=== PATIENT | male | born 1975 | race Caucasian/White ===

== ENCOUNTER → 2017-12-06 | Outpatient (CLI) | payer BC ==
--- NOTE | 2017-12-06 12:26 | US ---
EXAMINATION TYPE: US groin LT DATE OF EXAM: 12/06/2017 COMPARISON: NONE CLINICAL HISTORY: K40.90 Unilateral inguinal hernia. lt groin pain Patient states he bent over and felt a pain in the left groin. Left groin scanned over area of patient's pain with and without valsalva, no ultrasound evidence for hernia. No other abnormality noted. IMPRESSION: No significant abnormality.
== END | disposition home or self-care (01) ==
LOC: RADUSWWP 11:29
PROVIDERS: ATTEND Family Medicine
DX: K40.90 Unilateral inguinal hernia, without obstruction or gangrene, not specified as recurrent (principal)

== ENCOUNTER → 2019-03-02 | Outpatient (CLI) | payer BC ==
[~2019-03-02] MED LIST: ATROPINE SULFATE 0.1 MG/ML 10ML SYRINGE ONE; DOBUTamine DRIP for NUC MED 500 MG in DEXTROSE/WATER 1 250ML.BAG IV ONE
--- NOTE | 2019-03-02 12:35 | ECHOS ---
STRESS ECHOCARDIOGRAM INDICATIONS: Dyspnea BASELINE HEART RATE: 55 BASELINE BLOOD PRESSURE: 138/65 MAXIMUM HEART RATE: 127 MAXIMUM BLOOD PRESSURE: 212/72 85% MPHR: 150 100% MPHR: 176 MAXIMUM STAGE REACHED: 5 TOTAL EXERCISE TIME: 12:45 CLINICAL INFORMATION: Baseline EKG revealed normal sinus rhythm with poor R-wave progression over precordial leads. With dobutamine administration, heart rate changed from 55-127 beats per minute. He also received a mg of atropine. However, the heart rate did not go more than 127 beats per minute making this an inconclusive stress test. Because of resting EKG changes, this is considered an inconclusive stress test. The patient did not have a good chronotropic response with dobutamine administration. Baseline echo images revealed normal wall motion and wall thickening of all segments. There was some atypical septal motion noted. At a peak heart rate of 127 beats per minute which is suboptimal heart rate response with dobutamine infusion, there was evidence of decent improvement in contractility of all segments suggesting that there is no ischemia at a heart rate of 127 beats per minute but this is considered as they inconclusive stress test because of inadequate chronotropic response. FINAL IMPRESSION: 1. By EKG criteria, this is an inconclusive dobutamine stress test because of resting EKG changes and inadequate chronotropic response. 2. Inconclusive dobutamine stress echo because of inadequate chronotropic response but at a heart rate of 127 beats per minute, there was no ischemia. 3. If ischemia is suspected, this patient will benefit from a Lexiscan stress test. MMODL / IJN: [id number] /
== END | disposition home or self-care (01) ==
LOC: RADNMMAIN 09:03
PROVIDERS: ATTEND Family Medicine
DX: R93.1 Abnormal findings on diagnostic imaging of heart and coronary circulation (principal)
CPT/HCPCS: 93351; J1250

== ENCOUNTER 2020-02-20 18:33 | Observation (INO) | payer BC ==
[2020-02-20] MEDS ORDERED: ZIPRASIDONE 20 MG VIAL IM STA (18:53)
[2020-02-20] MEDS ORDERED: LORazepam 2 MG/ML INJ IM STA (18:55)
--- NOTE | 2020-02-20 18:59 | ED ---
General Adult HPI - General Chief complaint: Chest Pain Stated complaint: Chest pain Time Seen by Provider: 02/20/20 18:49 Source: patient Mode of arrival: ambulatory Limitations: no limitations - History of Present Illness Initial comments: Patient presents the ED complaining of having epigastric/lower chest pain radiating to his left arm for the past couple of days. Patient admits to feeling somewhat dyspneic at times as well. Patient also admits to feeling dizzy at times. Patient states that he has had cardiac bypass surgery in the past. Patient states that his pain is currently mild. Patient denies trauma or injury, fever or chills, headache, focal neuro deficit, neck/jaw/back pain, pleuritic pain, cough or cold symptoms, palpitations, diaphoresis, nausea or vomiting, lower abdominal pain, leg or calf swelling or pain, or any other sy mptoms or complaints. - Related Data Home Medications Medication Instructions Recorded Confirmed Atorvastatin [Lipitor] 40 mg PO DAILY 10/13/14 01/31/15 Isosorbide Mononitrate [Isosorbide 30 mg PO QAM 10/13/14 01/31/15 Mononitrate ER] Lisinopril 40 mg PO QAM 10/13/14 01/31/15 Multivitamin [Men's Multi-Vitamin] 1 tab PO DAILY 10/13/14 01/31/15 Carvedilol [Coreg] 12.5 mg PO BID 01/31/15 01/31/15 Furosemide [Lasix] 20 mg PO DAILY 01/31/15 01/31/15 HYDROcodone/APAP 7.5-325MG [[place] 1 each PO Q6HR PRN 01/31/15 02/07/15 7.5-325] Ranolazine [Ranexa] 500 mg PO BID 01/31/15 01/31/15 Varenicline [Chantix] 1 mg PO BID 01/31/15 01/31/15 Previous Rx's Medication Instructions Recorded Aspirin 81 mg PO DAILY #120 chew 10/18/14 Clopidogrel [Plavix] 75 mg PO DAILY #90 tab 10/18/14 Nitroglycerin Sl Tabs [Nitrostat] 0.4 mg SUBLINGUAL Q5M PRN #6 tab 10/18/14 HYDROcodone/APAP 7.5-325MG [[place] 1 - 2 each PO Q6HR PRN #90 tab 02/07/15 7.5] Allergies Allergy/AdvReac Type Severity Reaction Status Date / Time No Known Allergies Allergy Verified 02/20/20 18:42 Review of Systems ROS Statement: Those systems with pertinent positive or pertinent negative responses have been documented in the HPI. ROS Other: All systems not noted in ROS Statement are negative. Past Medical History Past Medical History: Coronary Artery Disease (CAD), Chest Pain / Angina, COPD, Hyperlipidemia, Hypertension, Myocardial Infarction (ME), Pneumonia, Sleep Apnea/CPAP/BIPAP, Vascular Disorder Additional Past Medical History / Comment(s): PARICARDITIS IN AUGUST AND OCTOBER 2011, FATTY LIVER,C-PAP Last Myocardial Infarction Date:: 2008,2010,-2014 History of Any Multi-Drug Resistant Organisms: None Reported Past Surgical History: Coronary Bypass/CABG, Heart Catheterization Additional Past Surgical History / Comment(s): INFANT DEEPIKA INGUINAL HERNIA REP AIR, 2010 TRIPLE BYPASS Past Anesthesia/Blood Transfusion Reactions: Motion Sickness Past Psychological History: No Psychological Hx Reported Smoking Status: Current some day smoker Past Alcohol Use History: Rare Past Drug Use History: None Reported - Past Family History Father Family Medical History: Asthma, COPD, Myocardial Infarction (ME) Mother Family Medical History: Asthma, Cancer, COPD, Hyperlipidemia, Hypertension General Exam Limitations: no limitations General appearance: alert, in no apparent distress Head exam: Present: atraumatic, normocephalic Eye exam: Present: normal appearance, EOMI ENT exam: Present: mucous membranes moist Respiratory exam: Present: normal lung sounds bilaterally. Absent: respiratory distress, wheezes, rales, rhonchi, chest wall tenderness Cardiovascular Exam: Present: regular rate, normal rhythm, normal heart sounds, other (Normal radial pulses bilaterally) GI/Abdominal exam: Present: soft, other (Obese abdomen). Absent: tenderness, guarding Extremities exam: Present: other (Negative Homans sign bilaterally). Absent: tenderness, pedal edema, calf tenderness Neurological exam: Present: alert, oriented X3. Absent: motor sensory deficit Psychiatric exam: Present: normal affect, normal mood Skin exam: Present: warm, dry, intact, normal color Course Vital Signs 02/20/20 02/20/20 18:39 19:30 Temperature 98.0 F Pulse Rate 76 Respiratory 18 Rate Blood Pressure 188/100 144/99 O2 Sat by Pulse 94 L Oximetry - Reevaluation(s) Reevaluation #1: 02/20/20 20:03 Case, H&P, test results and ED management were discussed with Dr. Lang. He accepts hospital admission. He has no further recommendations at this time. 02/20/20 20:07 Patient is aware of his test results, and he agrees with hospital admission at this time. Patient denies development of any new symptoms while in the ED. Patient remains alert and breathing comfortably. EKG Findings - EKG Comments: EKG Findings:: Normal sinus rhythm, ventricular rate of 72 bpm, no ectopy, normal LA and QRS intervals, normal QT interval, normal axis, no ST or T-wave abnormality Medical Decision Making - Medical Decision Making Patient has a heart score 3, but given his significant cardiac history and presenting symptoms, will admit the patient to the hospital for further evaluation of his chest pain and cardiac rule out. Dr. Lang has accepted hospital admission. - Lab Data Result diagrams: 02/20/20 19:10 02/20/20 19:10 Lab Results 02/20/20 02/20/20 02/20/20 Range/Units 19:10 19:10 19:10 WBC 11.3 H (3.8-10.6) k/uL RBC 5.74 (4.30-5.90) m/uL Hgb 18.0 H (13.0-17.5) gm/dL Hct 53.6 H (39.0-53.0) % MCV 93.3 (80.0-100.0) fL MCH 31.4 (25.0-35.0) pg MCHC 33.7 (31.0-37.0) g/dL RDW 13.7 (11.5-15.5) % Plt Count 174 (150-450) k/uL Neutrophils % 62 % Lymphocytes % 24 % Monocytes % 9 % Eosinophils % 3 % Basophils % 1 % Neutrophils # 7.0 (1.3-7.7) k/uL Lymphocytes # 2.7 (1.0-4.8) k/uL Monocytes # 1.0 (0-1.0) k/uL Eosinophils # 0.3 (0-0.7) k/uL Basophils # 0.1 (0-0.2) k/uL PT 9.7 (9.0-12.0) sec INR 0.9 (<1.2) APTT 24.1 (22.0-30.0) sec Sodium 137 (137-145) mmol/L Potassium 4.6 (3.5-5.1) mmol/L Chloride 104 (98-107) mmol/L Carbon Dioxide 23 (22-30) mmol/L Anion Gap 10 mmol/L BUN 17 (9-20) mg/dL Creatinine 1.00 (0.66-1.25) mg/dL Est GFR (CKD-EPI)AfAm >90 (>60 ml/min/1.73 sqM) Est GFR (CKD-EPI)NonAf >90 (>60 ml/min/1.73 sqM) Glucose 91 (74-99) mg/dL Calcium 9.4 (8.4-10.2) mg/dL Magnesium 1.8 (1.6-2.3) mg/dL Total Bilirubin 0.8 (0.2-1.3) mg/dL AST 66 H (17-59) U/L ALT 110 H (4-49) U/L Alkaline Phosphatase 95 (38-126) U/L Troponin I (0.000-0.034) ng/mL Total Protein 7.3 (6.3-8.2) g/dL Albumin 4.5 (3.5-5.0) g/dL Lipase 178 (23-300) U/L /18/20 Range/Units 19:10 WBC (3.8-10.6) k/uL RBC (4.30-5.90) m/uL Hgb (13.0-17.5) gm/dL Hct (39.0-53.0) % MCV (80.0-100.0) fL MCH (25.0-35.0) pg MCHC (31.0-37.0) g/dL RDW (11.5-15.5) % Plt Count (150-450) k/uL Neutrophils % % Lymphocytes % % Monocytes % % Eosinophils % % Basophils % % Neutrophils # (1.3-7.7) k/uL Lymphocytes # (1.0-4.8) k/uL Monocytes # (0-1.0) k/uL Eosinophils # (0-0.7) k/uL Basophils # (0-0.2) k/uL PT (9.0-12.0) sec INR (<1.2) APTT (22.0-30.0) sec Sodium (137-145) mmol/L Potassium (3.5-5.1) mmol/L Chloride (98-107) mmol/L Carbon Dioxide (22-30) mmol/L Anion Gap mmol/L BUN (9-20) mg/dL Creatinine (0.66-1.25) mg/dL Est GFR (CKD-EPI)AfAm (>60 ml/min/1.73 sqM) Est GFR (CKD-EPI)NonAf (>60 ml/min/1.73 sqM) Glucose (74-99) mg/dL Calcium (8.4-10.2) mg/dL Magnesium (1.6-2.3) mg/dL Total Bilirubin (0.2-1.3) mg/dL AST (17-59) U/L ALT (4-49) U/L Alkaline Phosphatase (38-126) U/L Troponin I 0.026 (0.000-0.034) ng/mL Total Protein (6.3-8.2) g/dL Albumin (3.5-5.0) g/dL Lipase (23-300) U/L - Radiology Data Radiology results: image reviewed (Chest x-ray is negative) Disposition Clinical Impression: Chest pain Disposition: ADMITTED IP TO THIS [facility] Condition: Stable Is patient prescribed a controlled substance at d/c from ED?: No Referrals: Roman Brown MD [Primary Care Provider] - 1-2 days Time of Disposition: 20:03
[2020-02-20] MEDS ORDERED: ASPIRIN 325 MG TAB PO STA (19:10)
[2020-02-20] MEDS ORDERED: NITROGLYCERIN SL TABS 0.4 MG TAB SUBLINGUAL STA (19:10)
[2020-02-20 19:22] LABS: Basophils # (A) 0.1 k/uL (0-0.2); Basophils % (A) 1 %; Eosinophils # (A) 0.3 k/uL (0-0.7); Eosinophils % (A) 3 %; HCT 53.6 % (39.0-53.0); Lymphocytes # (A) 2.7 k/uL (1.0-4.8); Lymphocytes % (A) 24 %; MCH 31.4 pg (25.0-35.0); MCHC 33.7 g/dL (31.0-37.0); MCV 93.3 fL (80.0-100.0); Mean Platelet Volume 7.5; Monocytes % (A) 9 %; Neutrophils % (A) 62 %; Platelet Count 174 k/uL (150-450); RBC 5.74 m/uL (4.30-5.90); RDW 13.7 % (11.5-15.5); WBC 11.3 k/uL (3.8-10.6)
[2020-02-20 19:34] LABS: ALT 110 U/L (4-49); AST 66 U/L (17-59); African American GFR (CKD) >90 (>60 ml/min/1.73 sqM); Albumin 4.5 g/dL (3.5-5.0); Alkaline Phosphatase 95 U/L (38-126); Anion Gap 10 mmol/L; Blood Urea Nitrogen 17 mg/dL (9-20); Calcium 9.4 mg/dL (8.4-10.2); Carbon Dioxide 23 mmol/L (22-30); Chloride 104 mmol/L (98-107); Glucose 91 mg/dL (74-99); Magnesium 1.8 mg/dL (1.6-2.3); Non-African American GFR(CKD) >90 (>60 ml/min/1.73 sqM); Potassium 4.6 mmol/L (3.5-5.1); Sodium 137 mmol/L (137-145); Total Bilirubin 0.8 mg/dL (0.2-1.3); Total Protein 7.3 g/dL (6.3-8.2)
--- NOTE | 2020-02-20 19:57 | XR ---
EXAMINATION TYPE: XR chest 2V DATE OF EXAM: 02/20/2020 COMPARISON: Chest radiograph 10/13/2014 HISTORY: Chest pain. Epigastric pain and left quadrant pain. TECHNIQUE: Frontal and lateral views of the chest are obtained. FINDINGS: Sternotomy wires. Similar prominent lung markings over the right lung base versus 2015 com parison. There is no focal air space opacity, pleural effusion, or pneumothorax seen. The cardiac si lhouette is within normal limits for size. The osseous structures are intact. IMPRESSION: No acute pulmonary process.
[2020-02-20 19:59] LABS: INR 0.9 (<1.2); Partial Thromboplastin Time 24.1 sec (22.0-30.0); Prothrombin Time 9.7 sec (9.0-12.0)
[2020-02-20] MEDS ORDERED: carvediloL 12.5 MG TAB PO SCH (21:00)
[2020-02-20] MEDS ORDERED: HEPARIN SODIUM,PORCINE 5,000 UNIT/ML 1 ML VIAL IV PRN (21:46)
[2020-02-20] MEDS ORDERED: HEPARIN SODIUM,PORCINE 5,000 UNIT/ML 1 ML VIAL IV ONE (21:46)
[2020-02-20] MEDS ORDERED: NITROGLYCERIN OINT 1 INCH/GM PACKET TOPICAL STA (21:47)
[2020-02-20] MEDS ORDERED: ACETAMINOPHEN TAB 325 MG TAB PO PRN (21:48)
[2020-02-20] MEDS ORDERED: HEPARIN SOD,PORK IN 0.45% NACL 25,000 UNIT in 0.45% NACL 1 250ML.BAG IV SCH (22:00)
--- NOTE | 2020-02-20 22:07 | P.HPIM ---
History of Present Illness H&P Date: 02/20/20 Patient is a 45-year-old male with a PMH of coronary artery disease status post CABG, hypertension, hyperlipidemia, obstructive sleep apnea on CPAP who presented to the ED with complaints of left-sided chest pain. The patient reports that he has been having this pain initially intermittently for the past 2 days, which then became constant earlier today. The pain is on the left side of his chest, squeezing-like, 6 out of 10, constant, with radiation to his left arm. He reports that the pain is different from his previous episodes of MIs. The pain is exertional and also occurring at rest, with no alleviating or exacerbating features, and is nonpleuritic. Denied recent travel, lower extrem ity swelling, or lower extremity pain. There is some associated shortness of breath and dizziness though the patient denied palpitations, nausea, vomiting, or loss of consciousness. Denied cough, fever, chills, abdominal pain, or diarrhea. In the emergency room, troponin level was 0.026, EKG revealed a normal sinus rhythm at 72 bpm with no acute ST/T-wave changes noted as reviewed by me. Chest x-ray revealed no acute pulmonary process. WBC count was 11.3 with hemoglobin 18.0. Review of Systems Pertinent positives and negatives as discussed in HPI, a complete review of systems was performed and all other systems are negative. Past Medical History Past Medical History: Coronary Artery Disease (CAD), Chest Pain / Angina, COPD, Hyperlipidemia, Hypertension, Myocardial Infarction ([place]), Pneumonia, Sleep Apnea/CPAP/BIPAP, Vascular Disorder Additional Past Medical History / Comment(s): PARICARDITIS IN AUGUST AND OCTOBER 2011, FATTY LIVER,C-PAP Last Myocardial Infarction Date:: ,-2014 History of Any Multi-Drug Resistant Organisms: None Reported Past Surgical History: Coronary Bypass/CABG, Heart Catheterization Additional Past Surgical History / Comment(s): DEEPIKA INGUINAL HERNIA REPAIR, 2010 TRIPLE BYPASS Past Anesthesia/Blood Transfusion Reactions: Motion Sickness Past Psychological History: No Psychological Hx Reported Smoking Status: Current some day smoker Past Alcohol Use History: Rare Additional Past Alcohol Use History / Comment(s): STARTED SMOKING AT AGE 11 SMOKES 2 PPD. PT IS A [employer] REP BY [employer] Past Drug Use History: None Reported - Past Family History Father Family Medical History: Asthma, COPD, Myocardial Infarction (HI) Mother Family Medical History: Asthma, Cancer, COPD, Hyperlipidemia, Hypertension Medications and Allergies Home Medications Medication Instructions Recorded Confirmed Type Atorvastatin [Lipitor] 40 mg PO HS 10/13/14 02/20/20 History Aspirin 81 mg PO HS 02/20/20 02/20/20 History Hydrochlorothiazide 25 mg PO HS 02/20/20 02/20/20 History Losartan Potassium 100 mg PO HS 02/20/20 02/20/20 History Metoprolol Succinate (ER) [Toprol 50 mg PO HS 02/20/20 02/20/20 History Xl] Omeprazole [PriLOSEC] 40 mg PO HS 02/20/20 02/20/20 History Triamcinolone 0.1% Cream [Kenalog 1 applicatio TOPICAL BID PRN 02/20/20 02/20/20 History 0.1% Cream] Allergies Allergy/AdvReac Type Severity Reaction Status Date / Time No Known Allergies Allergy Verified 02/20/20 21:32 Physical Exam Vitals: Vital Signs Temp Pulse Pulse Resp BP BP Pulse Ox 02/20/20 21:22 98.1 F 61 18 141/84 93 L 02/20/20 20:33 98.4 F 68 18 138/96 95 02/20/20 20:00 131/92 02/20/20 19:30 144/99 02/20/20 18:39 98.0 F 76 18 188/100 94 L Intake and Output 02/20/20 02/20/20 02/20/20 06:59 14:59 22:59 Other: Weight 176.901 kg General: non toxic, no distress, appears at stated age, morbidly obese Derm: no unusual rashes/lesions no unusual ecchymoses, warm, dry Head: atraumatic, normocephalic, symmetric Eyes: EOMI, no lid lag, anicteric sclera, pupils equal round reactive to light ENT: Nose and ears atraumatic, no thrush, no pharyngeal erythema Neck: No thyromegaly, no cervical lymphadenopathy, trachea midline, supple Mouth: no lip lesion, mucus membranes moist Cardiovascular: S1S2 reg, no murmur, positive posterior tibial pulse bilateral, no edema, capillary refill less than 2 seconds Lungs: CTA bilateral, no rhonchi, no rales , no accessory muscle use Abdominal: soft, nontender to palpation, no guarding, no appreciable organomegaly, normal bowel sounds Ext: no gross muscle atrophy, muscle strength 5 out of 5 in all 4 extremities grossly, no contractures, Neuro: CN II-XI grossly intact, light touch intact all 4 extremities, finger to nose within normal limits, Psych: Alert, oriented, appropriate affect Results CBC & Chem 7: 02/20/20 19:10 02/20/20 19:10 Labs: Abnormal Lab Results - Last 24 Hours (Table) 02/20/20 02/20/20 Range/Units 19:10 19:10 WBC 11.3 H (3.8-10.6) k/uL Hgb 18.0 H (13.0-17.5) gm/dL Hct 53.6 H (39.0-53.0) % AST 66 H (17-59) U/L ALT 110 H (4-49) U/L Thrombosis Risk Factor Assmnt - Choose All That Apply Each Factor Represents 1 point: Abnormal pulmonary function (COPD) Thrombosis Risk Factor Assessment Total Risk Factor Score: 1 Thrombosis Risk Factor Assessment Level: Low Risk Assessment and Plan Plan: Unstable angina -Heparin infusion -Aspirin, Lipitor, statin -Cardiology consult -Cardiac monitoring. -Nitropaste -Trend troponin Polycythemia -Likely secondary to obstructive sleep apnea -Monitor for now Leukocytosis -No signs of acute infection at this time -Likely secondary to acute distress Abnormal LFTs -Denying abdominal complaints at this time -Monitor CMP Chronic conditions: Hypertension, hyperlipidemia, obstructive sleep apnea -Continue with home meds -CPAP while sleeping DVT prophylaxis -Heparin infusion The patient is admitted with an anticipated less than 2 midnight stay for evaluation of chest pain CODE STATUS: Full Code Discussed with: Patient Anticipated discharge date: 1-[address]: Home A total of 35 minutes was spent on the care of this complex patient more than 50% of the time was spent in counseling and care coordination.
[2020-02-20] MEDS ORDERED: IPRATROPIUM-ALBUTEROL 3 ML NEB INHALATION PRN (22:50)
[2020-02-21] MEDS: NITROGLYCERIN OINT 1 INCH/GM PACKET TOPICAL SCH ×2 (01:38→06:44)
[2020-02-21 03:57] LABS: Basophils # (A) 0.1 k/uL (0-0.2); Basophils % (A) 1 %; Eosinophils # (A) 0.3 k/uL (0-0.7); Eosinophils % (A) 4 %; HCT 52.1 % (39.0-53.0); HGB 16.6 gm/dL (13.0-17.5); Lymphocytes # (A) 3.2 k/uL (1.0-4.8); Lymphocytes % (A) 33 %; MCH 29.6 pg (25.0-35.0); MCHC 31.8 g/dL (31.0-37.0); MCV 93.2 fL (80.0-100.0); Mean Platelet Volume 7.2; Monocytes # (A) 0.9 k/uL (0-1.0); Monocytes % (A) 9 %; Neutrophils # (A) 5.2 k/uL (1.3-7.7); Neutrophils % (A) 52 %; Platelet Count 165 k/uL (150-450); RBC 5.59 m/uL (4.30-5.90); RDW 13.7 % (11.5-15.5)
[2020-02-21 04:10] LABS: Albumin 3.7 g/dL (3.5-5.0); Potassium 3.6 mmol/L (3.5-5.1); Total Bilirubin 0.7 mg/dL (0.2-1.3)
[2020-02-21 07:51] VITALS: BP 150/89; RESP 16; TEMP 97.8
[2020-02-21] MEDS: IPRATROPIUM-ALBUTEROL 3 ML NEB INHALATION SCH ×2 (07:52→11:26)
[2020-02-21] MEDS ORDERED: PANTOPRAZOLE 40 MG TABLET PO SCH (08:15)
[2020-02-21] MEDS ORDERED: ATORVASTATIN 40 MG TAB PO SCH (09:00)
[2020-02-21] MEDS ORDERED: FUROSEMIDE 20 MG TAB PO SCH (09:00)
[2020-02-21] MEDS ORDERED: lisinopriL 20 MG TAB PO SCH (09:00)
[2020-02-21] MEDS ORDERED: CLOPIDOGREL 75 MG TAB PO SCH (09:00)
--- NOTE | 2020-02-21 10:29 | P.CRDCN ---
History of Present Illness History of present illness: HISTORY OF PRESENTING ILLNESS This is a pleasant 45-year-old male past medical history significant for area artery disease, hypertension, dyslipidemia and morbid obesity. He follows in the office with Dr. Keane. We have been asked to see in consultation for chest pain. He states for the previous couple of months he has been experiencing an achy sensation in the upper abdominal epigastric region. Sometimes it is sharp sometimes it is tight and squeezing. It is not associated with activity or exertion. It is not precipitated by oral intake. There is no specific aggravating factors. When it comes it is intense in nature. Sometimes it radiates up into the left precordial region, left shoulder and down the left arm. It is associated with very mild shortness of breath and mild dizziness. For the last 3 days it has been rather constant in nature. It is mildly aggr avated by deep palpation in the epigastric region. DIAGNOSTICS EKG reveals sinus mechanism, left atrial enlargement, old inferior infarct and poor R-wave for depression. Telemetry tracings indicate sinus bradycardia. He was given coronary left neck which is not his normal beta karthikeyan. Chest xray negative for an acute cardiopulmonary process. Laboratory reviewed, WBC on admission 11.3 repeat this morning 10, hemoglobin 16.6, platelets 165, sodium 135, potassium 3.6, creatinine 1.14, magnesium 1.8, cardiac enzymes negative 3. Current cardiac medications include aspirin 81 mg daily, atorvastatin 40 mg daily, hydrochlorothiazide 25 mg daily, losartan 100 mg daily and Toprol 50 mg daily. In 2014 he underwent cardiac catheterization revealing severe triple vessel coronary artery disease with 100% occlusion of the midcircumflex, which percent occlusion of the proximal RCA, 90% occlusion of the proximal LAD, patent TODD to LAD, SVG to RCA and SVG to circumflex REVIEW OF SYSTEMS At the time of my exam: CONSTITUTIONAL: Denies fever or chills. CARDIOVASCULAR: Complains of constant chest pain. Denies shortness of breath, orthopnea, PND or palpitations. RESPIRATORY: Denies cough. GASTROINTESTINAL: Denies abdominal pain, diarrhea, constipation, nausea or vomiting. MUSCULOSKELETAL: Denies myalgias. NEUROLOGIC: Denies numbness, tingling or weakness. ENDOCRINE: Denies fatigue, weight change, polydipsia or polyurina. GENITOURINARY: Denies burning, hematuria or urgency with micturation. HEMATOLOGIC: Denies history of anemia or bleeding. PHYSICAL EXAMINATION Blood pressure 150/89 heart rate 66 afebrile and maintaining oxygen saturation on room air. CONSTITUTIONAL: No apparent distress. Morbidly obese. HEENT: Head is normocephalic. Pupils are equal, round. Sclerae anicteric. Mucous membranes of the mouth are moist. No JVD. No carotid bruit. CHEST EXAMINATION: Lungs are clear to auscultation. No chest wall tenderness is noted on palpation or with deep breathing. HEART EXAMINATION: Regular rate and rhythm. S1, S2 heard. No murmurs, gallops or rub. ABDOMEN: Soft, nontender. Positive bowel sounds. EXTREMITIES: 2+ peripheral pulses, no lower extremity edema and no calf tend erness. NEUROLOGIC EXAMINATION: Patient is awake, alert and oriented x3. ASSESSMENT Chest pain, atypical. An acute coronary event has been ruled out. Coronary artery disease status post bypass grafting, patent three-vessel graft 2014 Hypertension Dyslipidemia Obstructive sleep apnea Morbid obesity, BMI 52 PLAN An acute coronary event has been ruled out. Symptoms are atypical for angina. May be related to underlying GI inflammation or peptic ulcer disease. Initiate Protonix 40 mg twice a day and assess for relief of ongoing constant discomfort. Increase activity and ambulation. Can be discharged from a cardiac perspective, follow-up with his primary japanese tutor for outpatient stress testing. Continue Toprol 50 mg at bedtime. Ongoing compliance with CPAP. Thank you kindly for this consultation. Nurse Practitioner note has been reviewed, I agree with a documented findings and plan of care. Patient was seen and examined. Past Medical History Past Medical History: Coronary Artery Disease (CAD), Chest Pain / Angina, COPD, Hyperlipidemia, Hypertension, Myocardial Infarction (PR), Pneumonia, Sleep Apnea/CPAP/BIPAP, Vascular Disorder Additional Past Medical History / Comment(s): PARICARDITIS IN AUGUST AND OCTOBER 2011, FATTY LIVER,C-PAP Last Myocardial Infarction Date:: 2008,2010,-2014 History of Any Multi-Drug Resistant Organisms: None Reported Past Surgical History: Coronary Bypass/CABG, Heart Catheterization Additional Past Surgical History / Comment(s): INFANT DEEPIKA INGUINAL HERNIA REPAIR, 2010 TRIPLE BYPASS Past Anesthesia/Blood Transfusion Reactions: Motion Sickness Past Psychological History: No Psychological Hx Reported Smoking Status: Current some day smoker Past Alcohol Use History: Rare Additional Past Alcohol Use History / Comment(s): STARTED SMOKING AT AGE 11 SMOK ES 2 PPD. 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[employer] Past Drug Use History: None Reported - Past Family History Father Family Medical History: Asthma, COPD, Myocardial Infarction (PR) Mother Family Medical History: Asthma, Cancer, COPD, Hyperlipidemia, Hypertension Medications and Allergies Home Medications Medication Instructions Recorded Confirmed Type Atorvastatin [Lipitor] 40 mg PO HS 10/13/14 02/20/20 History Aspirin 81 mg PO HS 02/20/20 02/20/20 History Hydrochlorothiazide 25 mg PO HS 02/20/20 02/20/20 History Losartan Potassium 100 mg PO HS 02/20/20 02/20/20 History Metoprolol Succinate (ER) [Toprol 50 mg PO HS 02/20/20 02/20/20 History Xl] Omeprazole [PriLOSEC] 40 mg PO HS 02/20/20 02/20/20 History Triamcinolone 0.1% Cream [Kenalog 1 applicatio TOPICAL BID PRN 02/20/20 02/20/20 History 0.1% Cream] Allergies Allergy/AdvReac Type Severity Reaction Status Date / Time No Known Allergies Allergy Verified 02/20/20 21:32 Physical Exam Vitals: Vital Signs Temp Pulse Pulse Resp BP BP BP 02/21/20 07:53 63 02/21/20 07:50 97.8 F 61 16 150/89 02/21/20 03:00 97 F L 64 20 154/70 02/20/20 21:22 98.1 F 61 18 141/84 02/20/20 21:00 98.1 F 61 18 141/84 02/20/20 20:33 98.4 F 68 18 138/96 02/20/20 20:00 131/92 02/20/20 19:30 144/99 02/20/20 18:39 98.0 F 76 18 188/100 Pulse Ox 02/21/20 07:53 94 L 02/21/20 07:50 96 02/21/20 03:00 94 L 02/20/20 21:22 93 L 02/20/20 21:00 93 L 02/20/20 20:33 95 02/20/20 20:00 02/20/20 19:30 02/20/20 18:39 94 L Intake and Output 02/20/20 02/21/20 02/21/20 22:59 06:59 14:59 Intake Total 52.186 Balance 52.186 Intake: Intake, IV Titration 52.186 Amount Heparin Sod,Pork in 0.45% 52.186 NaCl 25,000 unit In 0.45 % NaCl 1 250ml.bag @ 5 UNITS/KG/HR 8.845 mls/hr IV .Q24H [facility] Rx#: [id number] Other: Voiding Method Toilet Toilet # Voids 1 1 Weight 176.901 kg Results 02/21/20 03:41 02/21/20 03:41 Cardiac Enzymes 02/20/20 02/20/20 02/20/20 Range/Units 19:10 19:10 22:10 AST 66 H (17-59) U/L Troponin I 0.026 0.028 (0.000-0.034) ng/mL 02/21/20 02/21/20 Range/Units 01:00 03:41 AST 46 (17-59) U/L Troponin I 0.027 (0.000-0.034) ng/mL Coagulation 02/20/20 02/21/20 Range/Units 19:10 03:41 PT 9.7 (9.0-12.0) sec APTT 24.1 25.7 (22.0-30.0) sec CBC 02/20/20 02/21/20 Range/Units 19:10 03:41 WBC 11.3 H 10.0 (3.8-10.6) k/uL RBC 5.74 5.59 (4.30-5.90) m/uL Hgb 18.0 H 16.6 (13.0-17.5) gm/dL Hct 53.6 H 52.1 (39.0-53.0) % Plt Count 174 165 (150-450) k/uL Comprehensive Metabolic Panel 02/20/20 02/21/20 Range/Units 19:10 03:41 Sodium 137 135 L (137-145) mmol/L Potassium 4.6 3.6 (3.5-5.1) mmol/L Chloride 104 101 (98-107) mmol/L Carbon Dioxide 23 27 (22-30) mmol/L BUN 17 18 (9-20) mg/dL Creatinine 1.00 1.14 (0.66-1.25) mg/dL Glucose 91 120 H (74-99) mg/dL Calcium 9.4 9.0 (8.4-10.2) mg/dL AST 66 H 46 (17-59) U/L ALT 110 H 94 H (4-49) U/L Alkaline Phosphatase 95 84 (38-126) U/L Total Protein 7.3 6.0 L (6.3-8.2) g/dL Albumin 4.5 3.7 (3.5-5.0) g/dL Current Medications Generic Name Dose Route Start Last Admin Trade Name Freq PRN Reason Stop Dose Admin Acetaminophen 650 mg 02/20/20 21:48 Tylenol Tab PO Q6HR PRN Fever and/ or Pain Albuterol/Ipratropium 3 ml 02/20/20 22:50 Duoneb 0.5 Mg-3 Mg/3 Ml Soln INHALATION RT-QID PRN Shortness Of Breath Or Wheezing Albuterol/Ipratropium 3 ml 02/21/20 08:00 02/21/20 07:52 Duoneb 0.5 Mg-3 Mg/3 Ml Soln INHALATION 3 ml RT-QID RICHELLE Administration Atorvastatin Calcium 40 mg 02/21/20 09:00 Lipitor PO DAILY [facility] Heparin Sodium (Porcine) 0 unit 02/20/20 21:46 02/21/20 04:15 Heparin IV 4,000 unit PER PROTOCOL PRN Administration Low PTT Protocol Heparin Sodium/Sodium Chloride 250 mls @ 8.845 mls/hr 02/20/20 22:00 02/21/20 04:08 25,000 unit/ Sodium Chloride IV 8 units/kg/hr .Q24H RICHELLE 14.152 mls/hr Titration Protocol 5 UNITS/KG/HR Intake and Output 02/20/20 02/21/20 02/21/20 22:59 06:59 14:59 Intake Total 52.186 Balance 52.186 Intake: Intake, IV Titration 52.186 Amount Heparin Sod,Pork in 0.45% 52.186 NaCl 25,000 unit In 0.45 % NaCl 1 250ml.bag @ 5 UNITS/KG/HR 8.845 mls/hr IV .Q24H [facility] Rx#: [id number] Other: Voiding Method Toilet Toilet # Voids 1 1 Weight 176.901 kg 02/21/20 03:41 02/21/20 03:41
--- NOTE | 2020-02-21 11:15 | P.DS ---
Providers Date of admission: 02/20/20 20:03 Expected date of discharge: 02/21/20 Attending physician: Terry Lang MD Consults: 02/20/20 20:03 Consult Physician Stat Consulting Provider: Rosendo Moraes Reason/Comments: chest pain Do you want consulting provider notified?: Yes Primary care physician: [facility] Course: Patient is a 45-year-old male with a PMH of coronary artery disease status post CABG, hypertension, hyperlipidemia, obstructive sleep apnea on CPAP who presented to the ED with complaints of left-sided chest pain. The patient reports that he has been having this pain initially intermittently for the past 2 days, which then became constant earlier today. The pain is on the left side of his chest, squeezing-like, 6 out of 10, constant, with radiation to his left arm. He reports that the pain is different from his previous episodes of MIs. The pain is exertional and also occurring at rest, with no alleviating or exacerbating features, and is nonpleuritic. Denied recent travel, lower extremity swelling, or lower extremity pain. There is some associated shortness of breath and dizziness though the patient denied palpitations, nausea, vomiting, or loss of consciousness. Denied cough, fever, chills, abdominal pain, or diarrhea. In the emergency room, troponin level was 0.026, EKG revealed a normal sinus rhythm at 72 bpm with no acute ST/T-wave changes noted as reviewed by me. Chest x-ray revealed no acute pulmonary process. WBC count was 11.3 with hemoglobin 18.0. Patient was initially started on heparin drip for concerns of unstable angina. Troponins were 0.026, 0.028, 0.027. Acute coronary syndrome was ruled out. Lipase was within normal limits. Cardiology was consulted and recommended outpatient follow-up. Patient was seen and examined. No acute events overnight. Patient reported burning like pain in his upper epigastric area that brought him to the ED. Patient currently denies any chest pain. He denies any shortness of breath or palpitations. No nausea or vomiting. No fever or chills. 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 He denies any dizziness. General: [non toxic], [no distress], [appears at stated age], morbidly obese Derm: [warm], [dry] Head: [atraumatic], [normocephalic], [symmetric] Eyes: [EOMI], [no lid lag], [anicteric sclera] Mouth: [no lip lesion], [mucus membranes moist] Cardiovascular: [S1S2 reg], [no murmur], [positive DP pulse bilateral], Lungs: [Decreased breath sounds bilateral], [no rhonchi, no rales] , [no accessory muscle use] Abdominal: [soft], [ nontender to palpation], [no guarding], [no appreciable organomegaly] Ext: [no gross muscle atrophy], [no edema], [no contractures] Neuro: [no focal neuro deficits] Psych: [Alert], [oriented], [appropriate affect] Chest pain likely related to GERD with history of CAD Elevated LFT Hypertension Dyslipidemia Obstructive sleep apnea Resolved: Polycythemia, leukocytosis Troponins have been trended and acute coronary syndrome has been ruled out. Cardiology has been consulted and recommends outpatient follow-up as his chest pain is noncardiac in nature. Patient will be continued on omeprazole. He is to continue aspirin, Lipitor and metoprolol. He is to follow-up with cardiology in the outpatient setting. He has been advised against using Advil. His elevated LFTs have trended down. This is of unknown significance. Possibly related to fatty liver or Lipitor use. Patient will need to follow-up in the outpatient setting for further workup and management. Most recent blood pressures 150/89. Continue metoprolol, hydrochlorothiazide and losartan. Monitor vitals, adjust medications if necessary. Continue Lipitor. Continue CPAP at nighttime. Patient admitted for chest pain. Acute coronary syndrome ruled out. Cardiology consulted, recommends outpatient follow-up. He has been cleared for discharge. Anticipate DC home today. Patient advised to come back for worsening chest pain, shortness breath, palpitations or dizziness. He was advised dietary modification and elevation of bed at bedtime also avoiding late night eating for better control of his GERD symptoms. Pertinent Studies: Chest x-ray Patient Condition at Discharge: Stable Plan - Discharge Summary New Discharge Prescriptions: New Nitroglycerin Sl Tabs [Nitrostat] 0.4 mg SUBLINGUAL Q5M PRN #25 tab PRN Reason: Chest Pain Pantoprazole [Protonix] 40 mg PO AC-BID #60 tablet. Continue Atorvastatin [Lipitor] 40 mg PO HS Triamcinolone 0.1% Cream [Kenalog 0.1% Cream] 1 applicatio TOPICAL BID PRN PRN Reason: ECZEMA Metoprolol Succinate (ER) [Toprol XL] 50 mg PO HS Losartan Potassium 100 mg PO HS Hydrochlorothiazide 25 mg PO HS Aspirin 81 mg PO HS Discontinued Omeprazole [PriLOSEC] 40 mg PO HS Discharge Medication List Atorvastatin [Lipitor] 40 mg PO HS 10/13/14 [History] Aspirin 81 mg PO HS 02/20/20 [History] Hydrochlorothiazide 25 mg PO HS 02/20/20 [History] Losartan Potassium 100 mg PO HS 02/20/20 [History] Metoprolol Succinate (ER) [Toprol XL] 50 mg PO HS 02/20/20 [History] Triamcinolone 0.1% Cream [Kenalog 0.1% Cream] 1 applicatio TOPICAL BID PRN 02/20/20 [History] Nitroglycerin Sl Tabs [Nitrostat] 0.4 mg SUBLINGUAL Q5M PRN #25 tab 02/21/20 [Rx] Pantoprazole [Protonix] 40 mg PO AC-BID #60 tablet. 02/21/20 [Rx] Follow up Appointment(s)/Referral(s): Roman Brown MD [Primary Care Provider] - 1-2 days Henri Sloan MD [STAFF PHYSICIAN] - 1 Week Activity/Diet/Wound Care/Special Instructions: Diet: Cardiac low salt Follow-up with PCP within 2 days of discharge. Follow-up with cardiology within 1 week of discharge. Take all medications as advised to come back to the ED or call 911 for worsening chest pain, shortness breath, palpitations or dizziness. Discharge Disposition: HOME SELF-CARE
[2020-02-21 11:36] VITALS: PULSE 55
[2020-02-21] MEDS ORDERED: METOPROLOL SUCCINATE (ER) 50 MG TAB.ER.24H PO SCH (21:00)
[2020-02-21] MEDS ORDERED: LOSARTAN 50 MG TAB PO SCH (21:00)
[2020-02-21] MEDS ORDERED: ASPIRIN 81 MG PO SCH (21:00)
[2020-02-21] MEDS ORDERED: hydroCHLOROthiazide 25 MG TAB PO SCH (21:00)
== END 2020-02-21 13:13 | disposition home or self-care (01) ==
LOC: EC 18:33 → 3NCARDOBS 20:03
PROVIDERS: ADMIT Internal Medicine; ATTEND Internal Medicine
DX: R07.89 Other chest pain (principal); R42 Dizziness and giddiness; J44.9 Chronic obstructive pulmonary disease, unspecified; R79.89 Other specified abnormal findings of blood chemistry; I25.10 Atherosclerotic heart disease of native coronary artery without angina pectoris; I10 Essential (primary) hypertension; E78.5 Hyperlipidemia, unspecified; G47.33 Obstructive sleep apnea (adult) (pediatric); F17.210 Nicotine dependence, cigarettes, uncomplicated; D75.1 Secondary polycythemia; D72.829 Elevated white blood cell count, unspecified; I99.9 Unspecified disorder of circulatory system; Z20.828 Contact with and (suspected) exposure to other viral communicable diseases; K76.0 Fatty (change of) liver, not elsewhere classified; Z99.89 Dependence on other enabling machines and devices; E66.01 Morbid (severe) obesity due to excess calories; Z68.43 Body mass index [BMI] 50.0-59.9, adult; I25.2 Old myocardial infarction; Z79.82 Long term (current) use of aspirin; Z79.899 Other long term (current) drug therapy; Z95.1 Presence of aortocoronary bypass graft; Z87.01 Personal history of pneumonia (recurrent); Z82.5 Family history of asthma and other chronic lower respiratory diseases; Z82.49 Family history of ischemic heart disease and other diseases of the circulatory system; Z83.49 Family history of other endocrine, nutritional and metabolic diseases; Z80.9 Family history of malignant neoplasm, unspecified
CPT/HCPCS: 93005 ×2; 96365; 96366 ×2; 96376 ×2; 99285; 36415; 94640 ×2; 94760; 80053 ×2; 83690; 83735; 84484 ×2; 85025 ×2; 85610; 85730 ×2; 71046; G0378 ×2; U0003; J1644 ×3

== ENCOUNTER → 2020-07-06 | Outpatient (CLI) | payer BC ==
--- NOTE | 2020-07-06 16:19 | P.HPBAR ---
Bariatric H&P - History & Physicial H&P Date: 07/06/20 History & Physicial: Visit/CC: initial visit Patient initial contact: Initial weight: Initial weight in pounds: Height: 5 ft 10 in Initial BMI: Last weight: Current weight: 173.726 kg Current weight in pounds: Current BMI: [place] body weight (based on NIH guidelines): Excess body weight loss: The patient is a 45 year-old M who presents for Bariatric Assessment. He is looking into the sleeve. EGD into stomach. He has sleep apnea. Still has gallbladder. Mother has gallbladder. Stomach cancer does not exist. All family members with obesity. He takes omeprazole. Has has multiple heart attacks. He smokes. He is out of breath. He has sleep apnea. He reports diarrhea with fatty foods. He is difficult to awake. EGD Labs Past Medical History Past Medical History: Coronary Artery Disease (CAD), Chest Pain / Angina, COPD, Hyperlipidemia, Hypertension, Myocardial Infarction (ID), Pneumonia, Sleep Apnea/CPAP/BIPAP, Vascular Disorder Additional Past Medical History / Comment(s): PARICARDITIS IN AUGUST AND OCTOBER 2011, FATTY LIVER,C-PAP Last Myocardial Infarction Date:: 2008,2010,3-2014 History of Any Multi-Drug Resistant Organisms: None Reported Past Surgical History: Coronary Bypass/CABG, Heart Catheterization, Orthopedic Surgery Additional Past Surgical History / Comment(s): INFANT DEEPIKA INGUINAL HERNIA REPAIR, 2010 TRIPLE BYPASS; brain anerusym and surgery at age 21; right shoulder torn rotator cuff with dislocation surgery 2014 Past Anesthesia/Blood Transfusion Reactions: No Reported Reaction Past Psychological History: No Psychological Hx Reported Smoking Status: Current some day smoker Past Alcohol Use History: Rare Additional Past Alcohol Use History / Comment(s): STARTED SMOKING AT AGE 11 SMOKES 2 PPD. 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 Hiatal hernia: 2. H. Pylori: HgbA1c: Vitamin D: Smoking: Current every day smoker Primary care physician referral: Dr. Brown Psychiatry clearance: Cardiology clearance: Sleep study: Diet journal: VTE risk score: VTE risk level: Rehab needs at discharge:
[2020-07-06 16:25] VITALS: BP 148/110; PULSE 82; RESP 18; TEMP 98.2
== END | disposition home or self-care (01) ==
LOC: BARWHC3 15:24
PROVIDERS: ATTEND Surgery Plastic and Reconstructive Surgery
DX: G47.30 Sleep apnea, unspecified (principal); I51.89 Other ill-defined heart diseases; R19.7 Diarrhea, unspecified; F17.200 Nicotine dependence, unspecified, uncomplicated; Z83.49 Family history of other endocrine, nutritional and metabolic diseases; Z79.899 Other long term (current) drug therapy
CPT/HCPCS: 99211

== ENCOUNTER 2020-07-27 09:31 | Day surgery (SDC) | payer BC ==
[2020-07-22 15:35] VITALS: BMI 54.3
[~2020-07-27 09:31] MED LIST changes: -ATROPINE SULFATE 0.1 MG/ML 10ML SYRINGE ONE; -DOBUTamine DRIP for NUC MED 500 MG in DEXTROSE/WATER 1 250ML.BAG IV ONE; +LACTATED RINGERS 1,000 ML IV SCH; +LIDOCAINE 1% (10MG/ML) FOR IV START INTRADERMA PRN
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
[2020-07-27 09:52] VITALS: TEMP 97.8
[2020-07-27] MEDS ORDERED: LACTATED RINGERS 1,000 ML IV ONE (09:52)
[2020-07-27] MEDS ORDERED: PROPOFOL 10 MG/ML 20 ML VIAL IV ONE (10:41)
[2020-07-27] MEDS ORDERED: MIDAZOLAM 2 MG/2 ML VIAL ONE (10:41)
[2020-07-27] MEDS ORDERED: KETAMINE 10 MG/ML 20 ML VIAL ONE (10:41)
[2020-07-27] MEDS ORDERED: LIDOCAINE 1% INJ 10MG/ML (20 ML MDV) ONE (10:41)
[2020-07-27] MEDS ORDERED: GLYCOPYRROLATE 0.2 MG/ML 2 ML VIAL ONE (10:41)
[2020-07-27 11:04] VITALS: RESP 16
--- NOTE | 2020-07-27 11:10 | P.PCN ---
Date of Procedure: 07/27/20 Description of Procedure: PREOPERATIVE DIAGNOSIS: Gastroesophageal reflux disease. Morbid obesity. POSTOPERATIVE DIAGNOSIS: Morbid obesity. Gastritis. Gastroesophageal reflux disease with erosive esophagitis Moderate to severe obstructive sleep apnea OPERATION: Esophagogastroduodenoscopy with biopsies along antrum. SURGEON: Ellie Ferrara MD ANESTHESIA: MAC. INDICATIONS: The patient is a 45-year-old male who presents with a history of reflux disease. Benefits and risks of the procedure were described. Informed consent was obtained. DESCRIPTION: The patient was brought into the endoscopy suite and laid in the left lateral decubitus position. An Olympus gastroscope was passed along the posterior oropharynx down to the distal esophagus where the squamocolumnar junction was encountered at 40 cm from the incisors. The stomach was entered and no bile reflux was found. Additional findings are listed below. Biopsies with cold forceps were obtained of the antrum. The first through third portion of the duodenum was examined and unremarkable. Retroflexion of the scope confirmed Hill grade 2 lower esophageal valve. The squamocolumnar junction demonstrated LA grade C erosive esophagitis. The stomach was desufflated. The patient tolerated the procedure well. FINDINGS: Squamocolumnar junction 40 cm from the incisors. Diaphragmatic hiatus at 40 cm. Hill grade 2 lower esophageal valve. LA grade C erosive esophagitis. No active duodenitis. Chronic gastritis Moderate to severe obstructive sleep apnea RECOMMENDATIONS: Upper endoscopy as needed. Plan - Discharge Summary Discharge Rx Participant: No New Discharge Prescriptions: Continue Atorvastatin [Lipitor] 40 mg PO HS Triamcinolone 0.1% Cream [Kenalog 0.1% Cream] 1 applicatio TOPICAL BID PRN PRN Reason: ECZEMA Metoprolol Succinate (ER) [Toprol XL] 50 mg PO HS Losartan Potassium 100 mg PO HS hydroCHLOROthiazide 25 mg PO HS Aspirin 81 mg PO HS Omeprazole 40 mg PO DAILY Discharge Medication List Atorvastatin [Lipitor] 40 mg PO HS 10/13/14 [History] Aspirin 81 mg PO HS 02/20/20 [History] Losartan Potassium 100 mg PO HS 02/20/20 [History] Metoprolol Succinate (ER) [Toprol XL] 50 mg PO HS 02/20/20 [History] Triamcinolone 0.1% Cream [Kenalog 0.1% Cream] 1 applicatio TOPICAL BID PRN 02/20/20 [History] hydroCHLOROthiazide 25 mg PO HS 02/20/20 [History] Omeprazole 40 mg PO DAILY 07/06/20 [History] Follow up Appointment(s)/Referral(s): [facility] [NON-STAFF] - 08/10/20 Patient Instructions/Handouts: Gastritis (DC), Diet for Stomach Ulcers and Gastritis (ED) Discharge Disposition: HOME SELF-CARE
[2020-07-27 11:19] VITALS: BP 119/73; PULSE 72
== END 2020-07-27 11:37 | disposition home or self-care (01) ==
LOC: ORWHC2ENDO 09:31
PROVIDERS: ATTEND Surgery Plastic and Reconstructive Surgery
DX: K21.00 Gastro-esophageal reflux disease with esophagitis, without bleeding (principal); K22.10 Ulcer of esophagus without bleeding; K29.50 Unspecified chronic gastritis without bleeding; Z98.890 Other specified postprocedural states; I10 Essential (primary) hypertension; I25.2 Old myocardial infarction; I25.10 Atherosclerotic heart disease of native coronary artery without angina pectoris; J44.9 Chronic obstructive pulmonary disease, unspecified; G47.33 Obstructive sleep apnea (adult) (pediatric); E66.01 Morbid (severe) obesity due to excess calories; E78.5 Hyperlipidemia, unspecified; F17.210 Nicotine dependence, cigarettes, uncomplicated; K76.0 Fatty (change of) liver, not elsewhere classified; Z95.1 Presence of aortocoronary bypass graft; Z79.82 Long term (current) use of aspirin; Z79.899 Other long term (current) drug therapy; Z87.01 Personal history of pneumonia (recurrent); Z99.89 Dependence on other enabling machines and devices; Z82.49 Family history of ischemic heart disease and other diseases of the circulatory system; Z82.5 Family history of asthma and other chronic lower respiratory diseases; Z68.43 Body mass index [BMI] 50.0-59.9, adult
CPT/HCPCS: 88305; 43239; J2250; J2001; J2704

== ENCOUNTER → 2020-07-27 | Outpatient (CLI) | payer BC ==
[2020-07-27 14:19] LABS: HCT 54.2 % (39.0-53.0); HGB 17.6 gm/dL (13.0-17.5); MCH 30.2 pg (25.0-35.0); MCHC 32.5 g/dL (31.0-37.0); MCV 92.9 fL (80.0-100.0); Mean Platelet Volume 7.3; Platelet Count 184 k/uL (150-450); RBC 5.83 m/uL (4.30-5.90); RDW 13.8 % (11.5-15.5); WBC 7.2 k/uL (3.8-10.6)
[2020-07-27 23:42] LABS: INR 1.02 (0.90-1.11); Partial Thromboplastin Time 26.1 sec (23.5-31.0)
[2020-07-28 00:08] LABS: Ferritin 144.7 ng/mL (22.0-322.0); Folate, Serum 8.7 ng/mL
[2020-07-28 00:23] LABS: % Iron Saturation 37.57 (15.00-50.00); African American GFR (CKD) 84.1 (60.0-200.0); Albumin 4.4 g/dL (3.80-4.90); Albumin/Globulin Ratio 2.44 (1.60-3.17); Anion Gap 6.3 mmol/L (4.00-12.00); BUN/Creat Ratio 12.5 Ratio (12.00-20.00); Calcium 9.7 mg/dL (8.7-10.3); Carbon Dioxide 34.7 mmol/L (21.6-31.8); Chol/HDL Ratio 4.79; Globulin 1.8 g/dL (1.6-3.3); LDL Cholesterol,Calculated 94.8 mg/dL (0.0-131.0); Magnesium 1.7 mg/dL (1.5-2.4); Non-African American GFR(CKD) 72.6 (60.0-200.0); Phosphorus 3.9 mg/dL (2.4-5.1); Potassium 4.5 mmol/L (3.5-5.5); Total Bilirubin 0.7 mg/dL (0.3-1.2); Total Protein 6.2 g/dL (6.2-8.2); VLDL Calculation 30.2 mg/dL (5.00-40.00)
[2020-07-28 01:03] LABS: Hemoglobin A1C 6.3 % (4.0-6.0)
[2020-07-28 13:55] LABS: Zinc, Serum 57 ug/dL (60-130)
== END | disposition home or self-care (01) ==
LOC: LABWHC1 12:08
PROVIDERS: ATTEND Surgery Plastic and Reconstructive Surgery
DX: K50.90 Crohn's disease, unspecified, without complications (principal); E89.1 Postprocedural hypoinsulinemia; D50.9 Iron deficiency anemia, unspecified; K90.89 Other intestinal malabsorption; E55.9 Vitamin D deficiency, unspecified; K74.1 Hepatic sclerosis; N19 Unspecified kidney failure
CPT/HCPCS: 36415; 80053; 80061; 82306; 82525; 82607; 82728; 82746; 83036; 83540; 83550; 83735; 83970; 84100; 84134; 84255; 84425; 84443; 84590; 84630; 85027; 85610; 85730

== ENCOUNTER → 2020-09-16 | Outpatient (CLI) | payer BC | END | disposition home or self-care (01) | LOC: RADMRIMAIN 07:38 | PROVIDERS: ATTEND Family Medicine | DX: Z53.9 Procedure and treatment not carried out, unspecified reason (principal) ==

== ENCOUNTER → 2020-09-26 | Outpatient (CLI) | payer BC ==
[2020-09-26 08:50] VITALS: BMI 56.9
== END | disposition home or self-care (01) ==
LOC: BARWHC3 08:17
PROVIDERS: ATTEND Surgery Plastic and Reconstructive Surgery
DX: E66.01 Morbid (severe) obesity due to excess calories (principal); Z71.3 Dietary counseling and surveillance; Z68.42 Body mass index [BMI] 45.0-49.9, adult
CPT/HCPCS: 97804

== ENCOUNTER → 2020-10-11 | Outpatient (CLI) | payer BC ==
--- NOTE | 2020-10-11 19:28 | CT ---
EXAMINATION TYPE: CT lumbar spine wo con DATE OF EXAM: 10/11/2020 6:51 PM COMPARISON: None. HISTORY: chronic low back pain CT DLP: 2530.3 mGycm Automated exposure control for dose reduction was used. Unenhanced CT of the lumbar spine was performed. Bone and soft tissue window settings are submitted as well as coronal and sagittal reconstructions. There are 5 lumbar type vertebra identified. Vertebral body heights and disc space heights are satisf actory. Alignment appears within normal limits. No large disc herniations on sagittal images. Bilater al pars defect without significant spondylolisthesis. Review of axial images shows mild facet arthropathy at L4-L5 and L5-S1 levels. Bilateral neural tamra henry felt patent. Spinal canal is preserved. Mild to moderate calcified plaque of the overlying abdomi nal aorta extends into branch vessels. Paraspinal muscle bulk is maintained. IMPRESSION: Mild degenerative changes lower lumbar spine. Bilateral pars defect L5 level without spon dylolisthesis.
== END ==
LOC: RADCTMAIN 18:34
PROVIDERS: ATTEND Physical Medicine & Rehabilitation
DX: M47.816 Spondylosis without myelopathy or radiculopathy, lumbar region (principal)
CPT/HCPCS: 72131

== ENCOUNTER → 2020-10-24 | Outpatient (CLI) | payer BC ==
[2020-10-24 18:16] LABS: HCT 52.6 % (39.6-50.0); HGB 17.1 g/dL (13.0-17.0); MCH 29.8 pg (27.0-32.0); MCHC 32.5 g/dL (32.0-37.0); MCV 91.8 fL (80.0-97.0); Mean Platelet Volume 10.4 fL (9.5-12.2); Platelet Count 175 X 10*3/uL (140-440); RBC 5.73 X 10*6/uL (4.40-5.60); RDW 13.9 % (11.5-14.5); WBC 6.87 X 10*3/uL (4.50-10.00)
[2020-10-24 19:21] LABS: % Iron Saturation 26.67 (15.00-50.00); African American GFR (CKD) 84.1 (60.0-200.0); Albumin 4.6 g/dL (3.80-4.90); Albumin/Globulin Ratio 2.71 (1.60-3.17); Anion Gap 7.6 mmol/L (4.00-12.00); BUN/Creat Ratio 15.83 Ratio (12.00-20.00); Calcium 9.4 mg/dL (8.7-10.3); Carbon Dioxide 31.4 mmol/L (21.6-31.8); Chol/HDL Ratio 4.75; Globulin 1.7 g/dL (1.6-3.3); Magnesium 1.8 mg/dL (1.5-2.4); Non-African American GFR(CKD) 72.6 (60.0-200.0); Phosphorus 3.6 mg/dL (2.4-5.1); Potassium 4.1 mmol/L (3.5-5.5); Total Bilirubin 0.6 mg/dL (0.3-1.2); Total Protein 6.3 g/dL (6.2-8.2)
[2020-10-24 19:33] LABS: Ferritin 95.2 ng/mL (22.0-322.0)
[2020-10-24 19:47] LABS: Hemoglobin A1C 6.3 % (4.0-6.0)
[2020-10-24 19:57] LABS: Folate, Serum 13.8 ng/mL
[2020-10-25 00:41] LABS: Partial Thromboplastin Time 27.1 sec (23.5-31.0); Prothrombin Time 10.9 sec (9.9-11.9)
[2020-10-25 12:54] LABS: Zinc, Serum 64 ug/dL (60-130)
[2020-10-26 06:34] LABS: Vitamin A 41 ug/dL (38-106)
[2020-10-26 06:41] LABS: Vit B1(Thiamine) 79 ug/L (38-122)
== END | disposition home or self-care (01) ==
LOC: LABWHC1 12:14
PROVIDERS: ATTEND Surgery Plastic and Reconstructive Surgery
DX: E66.01 Morbid (severe) obesity due to excess calories (principal); E89.1 Postprocedural hypoinsulinemia; D50.8 Other iron deficiency anemias; K90.89 Other intestinal malabsorption; E44.0 Moderate protein-calorie malnutrition; E55.9 Vitamin D deficiency, unspecified; K74.1 Hepatic sclerosis; N19 Unspecified kidney failure; K50.90 Crohn's disease, unspecified, without complications
CPT/HCPCS: 36415; 80053; 80061; 82306; 82525; 82607; 82728; 82746; 83036; 83540; 83550; 83735; 83970; 84100; 84134; 84255; 84425; 84443; 84590; 84630; 85027; 85610; 85730

== ENCOUNTER → 2020-10-26 | Outpatient (CLI) | payer BC ==
[2020-10-26 15:04] VITALS: BP 144/89; PULSE 65; RESP 18; TEMP 99.2; BMI 57.2
--- NOTE | 2020-10-26 15:39 | P.PN ---
Subjective Progress Note Date: 10/26/20 He is follow-up after EGD. Plan for Sleeve. Risk for omeprazole. Recommend continue diet. High risk for sleep apnea. Recommend US and urine nicotine. Labs reviewed. Objective - Vital Signs Vital signs: Vital Signs Temp 99.2 F 10/26/20 14:51 Pulse 65 10/26/20 14:51 Resp 18 10/26/20 14:51 BP 144/89 10/26/20 14:51 Pulse Ox Intake & Output 10/25/20 10/26/20 10/26/20 18:59 06:59 18:59 Weight 180.983 kg
== END ==
LOC: BARWHC3 14:18
PROVIDERS: ATTEND Surgery Plastic and Reconstructive Surgery
DX: E66.01 Morbid (severe) obesity due to excess calories (principal); Z68.43 Body mass index [BMI] 50.0-59.9, adult
CPT/HCPCS: 99211

== ENCOUNTER 2021-03-28 19:46 | Inpatient (IN) | payer BC ==
[2021-03-28 20:16] LABS: Basophils % (A) 0 %; Eosinophils # (A) 0.3 k/uL (0-0.7); Eosinophils % (A) 3 %; HCT 50.8 % (39.0-53.0); HGB 16.9 gm/dL (13.0-17.5); Lymphocytes # (A) 2.3 k/uL (1.0-4.8); Lymphocytes % (A) 21 %; MCH 31.1 pg (25.0-35.0); MCHC 33.4 g/dL (31.0-37.0); MCV 93.2 fL (80.0-100.0); Mean Platelet Volume 7.1; Monocytes # (A) 0.7 k/uL (0-1.0); Monocytes % (A) 7 %; Neutrophils # (A) 7.2 k/uL (1.3-7.7); Neutrophils % (A) 67 %; Platelet Count 196 k/uL (150-450); RBC 5.45 m/uL (4.30-5.90); RDW 14.3 % (11.5-15.5); WBC 10.7 k/uL (3.8-10.6)
[2021-03-28 20:24] LABS: Prothrombin Time 11.1 sec (9.0-12.0)
[2021-03-28 20:26] LABS: ALT 80 U/L (4-49); AST 47 U/L (17-59); African American GFR (CKD) >90 (>60 ml/min/1.73 sqM); Alkaline Phosphatase 77 U/L (38-126); Anion Gap 9 mmol/L; Blood Urea Nitrogen 23 mg/dL (9-20); Calcium 9.5 mg/dL (8.4-10.2); Carbon Dioxide 25 mmol/L (22-30); Chloride 102 mmol/L (98-107); Glucose 202 mg/dL (74-99); Magnesium 1.6 mg/dL (1.6-2.3); Non-African American GFR(CKD) >90 (>60 ml/min/1.73 sqM); Potassium 3.7 mmol/L (3.5-5.1); Sodium 136 mmol/L (137-145); Total Bilirubin 0.8 mg/dL (0.2-1.3); Total Protein 6.5 g/dL (6.3-8.2)
--- NOTE | 2021-03-28 20:56 | XR ---
EXAMINATION TYPE: XR chest 2V DATE OF EXAM: 03/28/2021 CLINICAL HISTORY: Chest Pain. TECHNIQUE: Frontal and lateral view of the chest. COMPARISON: 02/20/2020 FINDINGS: Sternotomy wires. The cardiomediastinal silhouette is within normal limits for size. Pulmo nary vasculature is normal. There is no focal air space opacity. No pleural effusion. No pneumothora x seen. No acute displaced osseous fracture. IMPRESSION: No acute cardiopulmonary process.
[2021-03-28] MEDS ORDERED: KETOROLAC 15 MG/ML 1 ML VIAL IVP STA (22:05)
[2021-03-28] MEDS ORDERED: SODIUM CHLORIDE 0.9% 1,000 ML IV STA ×2 (22:05)
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
--- NOTE | 2021-03-28 23:05 | CT ---
EXAMINATION TYPE: CT angio chest DATE OF EXAM: 03/28/2021 COMPARISON: HISTORY: SOB and chest pain, h/o 3 heart attacks and triple bypass CT DLP: 1157.3 mGycm Automated exposure control for dose reduction was used. CONTRAST: Performed with IV Contrast, patient injected with 100 mL of Isovue 370. There are 3-D post processed images. There is some mild atelectasis at the lung bases. There is no pleural effusion. There is no pericardi al effusion. Heart size is normal. There is no mediastinal adenopathy. There are no hilar masses. Thoracic aorta is intact. There is no sign of aneurysm or dissection. There is normal contrast opacification of the pulmonary arteries. There are no filling defects. The t horacic vertebra have normal alignment. Posterior elements are intact. There are sternal wires. The r ibs appear intact. IMPRESSION: No evidence of pulmonary embolism. No suspicious pulmonary mass. Mild subsegmental atelectasis at the lung bases.
[2021-03-29] MEDS ORDERED: NITROGLYCERIN SL TABS 0.4 MG TAB SUBLINGUAL PRN (00:18)
[2021-03-29] MEDS ORDERED: HEPARIN SODIUM 1,000 UN/ML (10ML VL) IV ONE ×2 (00:18→18:43)
[2021-03-29] MEDS ORDERED: ASPIRIN 81 MG PO STA (00:18)
[2021-03-29] MEDS ORDERED: HEPARIN SOD,PORK IN 0.45% NACL 25,000 UNIT in 0.45% NACL 1 250ML.BAG IV SCH (00:30)
[2021-03-29] MEDS: SODIUM CHLORIDE 0.9% 1,000 ML IV SCH (01:21)
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
[2021-03-29] MEDS ORDERED: INSULIN ASPART (NovoLOG) 100 UNIT/ML VIAL SQ SCH (07:30)
[2021-03-29 08:54] LABS: Glucose,Whole Blood 136 mg/dL (75-99)
[2021-03-29] MEDS: hydroCHLOROthiazide 25 MG TAB PO SCH (09:02)
[2021-03-29] MEDS: LOSARTAN 50 MG TAB PO SCH (09:02)
[2021-03-29] MEDS: PANTOPRAZOLE 40 MG TABLET PO SCH (09:02)
[2021-03-29] MEDS: METOPROLOL SUCCINATE (ER) 50 MG TAB.ER.24H PO SCH (09:03)
[2021-03-29] MEDS: INSULIN ASPART (NovoLOG) 100 UNIT/ML VIAL SQ SCH ×4 (09:03→20:15)
[2021-03-29] MEDS: ATORVASTATIN 40 MG TAB PO SCH (09:03)
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
--- NOTE | 2021-03-29 11:31 | ECHOF ---
Referral Reason:troponinLeak MEASUREMENTS -------- HEIGHT: 182.9 cm WEIGHT: 174.6 kg BP: 116/72 RVIDd: 4.4 cm (< 3.3) IVSd: 1.8 cm (0.6 - 1.1) LVIDd: 4.6 cm (3.9 - 5.3) LVPWd: 2.1 cm (0.6 - 1.1) IVSs: 2.1 cm LVIDs: 3.1 cm LVPWs: 2.6 cm LAESV Index (A-L): 22.26 ml/m Ao Diam: 3.9 cm (2.0 - 3.7) AV Cusp: 2.5 cm (1.5 - 2.6) LA Diam: 4.9 cm (2.7 - 3.8) MV EXCURSION: 15.892 mm (> 18.000) MV EF SLOPE: 51 mm/s (70 - 150) EPSS: 0.9 cm MV E Jese: 1.03 m/s MV DecT: 226 ms MV A Jese: 0.67 m/s MV E/A Ratio: 1.55 RAP: 5.00 mmHg RVSP: 15.67 mmHg FINDINGS -------- Sinus rhythm. This was a technically difficult study with suboptimal apical views. The left ventricular size is normal. There is severe concentric left ventricular hypertrophy. Ove rall left ventricular systolic function is low-normal with, an EF between 50 - 55 %. Septal wall mo tion is delayed and consistent with prior cardiac surgery. The right ventricle is severely enlarged. Normal LA size by volume 22+/-6 ml/m2. The right atrial size is normal. 5.0mg of Lumason was utilized for enhancement of images Interatrial and interventricular septum intact. The aortic valve is trileaflet and appears structurally normal. There is no evidence of aortic regu rgitation. There is no evidence of aortic stenosis. No mitral regurgitation. Mild tricuspid regurgitation present. There is no evidence of pulmonary hypertension. The right v entricular systolic pressure, as measured by Doppler, is 15.67mmHg. There is no pulmonic regurgitation present. The aortic root size is normal. IVC Not well visulized. There is no pericardial effusion. CONCLUSIONS -------- 1. The left ventricular size is normal. 2. There is severe concentric left ventricular hypertrophy. 3. Overall left ventricular systolic function is low-normal with, an EF between 50 - 55 %. 4. The right ventricle is severely enlarged. 5. Mild tricuspid regurgitation present. BOLT HEADER: Lexi Field RDCS
[2021-03-29 11:57] LABS: Glucose,Whole Blood 174 mg/dL (75-99)
[2021-03-29] MEDS ORDERED: ALPRAZolam 0.25 MG TAB PO PRN (14:22)
--- NOTE | 2021-03-29 14:24 | P.PN ---
Subjective Progress Note Date: 03/29/21 Patient was seen and evaluated by me today. He still in the emergency room. He denies any chest pain. No acute events on quality assurance monitor reported by nursing staff. Objective - Vital Signs Vital signs: Vital Signs Temp 98.0 F 03/29/21 09:04 Pulse 68 03/29/21 12:02 Resp 16 03/29/21 12:02 BP 113/71 03/29/21 12:02 Pulse Ox 99 03/29/21 12:02 Intake & Output 03/28/21 03/29/21 03/29/21 18:59 06:59 18:59 Weight 174.633 kg - Exam General: The patient is awake and alert, in no distress Eye: there is normal conjunctiva bilaterally. Neck: The neck is supple, there is no JVD. Cardiovascular: Normal S1-S2, no S3-S4, no murmurs. Respiratory: Lungs clear to auscultation bilaterally Gastrointestinal: Abdomen is soft, nontender Musculoskeletal: There is no pedal edema. Neurological:. Speech is normal. Skin: Skin is warm and dry - Labs CBC & Chem 7: 03/28/21 20:06 03/28/21 20:06 Labs: Abnormal Lab Results - Last 24 Hours (Table) 03/28/21 03/28/21 03/29/21 Range/Units 20:06 20:06 07:24 WBC 10.7 H (3.8-10.6) k/uL Sodium 136 L (137-145) mmol/L BUN 23 H (9-20) mg/dL Glucose 202 H (74-99) mg/dL POC Glucose (mg/dL) (75-99) mg/dL ALT 80 H (4-49) U/L Troponin I 0.059 H* (0.000-0.034) ng/mL 03/29/21 03/29/21 03/29/21 Range/Units 08:52 11:33 11:54 WBC (3.8-10.6) k/uL Sodium (137-145) mmol/L BUN (9-20) mg/dL Glucose (74-99) mg/dL POC Glucose (mg/dL) 136 H 174 H (75-99) mg/dL ALT (4-49) U/L Troponin I 0.205 H* (0.000-0.034) ng/mL Assessment and Plan Assessment: This is a 46-year-old male with past medical history noted below who presented to the emergency room with chest pain. He should was evaluated in the ER and admitted to the hospital for further management of his medical problems noted below. 1. Non-ST elevation [place], and started on IV heparin drip. Seen and evaluated by cardiology. Echocardiogram showed preserved ejection fraction of 50-55% with no significant for motion abnormalities. Patient is maintained on aspirin, Lipitor, metoprolol 2. History of coronary artery disease with prior CABG 3. Obstructive sleep apnea noncompliant with his CPAP machine at home 4. Chronic medical problems: Essential hypertension, hyperlipidemia, prediabetes, morbid obesity Today, I reviewed his medication list and lab work results. CT angiogram of the chest was negative for PE. Awaiting further recommendation by cardiology. May benefit from a left heart catheterization.
[2021-03-29 17:11] LABS: Glucose,Whole Blood 106 mg/dL (75-99)
[2021-03-29 17:14] LABS: Hemoglobin A1C 6.2 % (4.0-6.0)
[2021-03-29] MEDS ORDERED: HEPARIN SODIUM 1,000 UN/ML (10ML VL) IV PRN (18:43)
[2021-03-29 19:31] LABS: Basophils % (A) 1 %; Eosinophils # (A) 0.2 k/uL (0-0.7); Eosinophils % (A) 3 %; HCT 52.4 % (39.0-53.0); HGB 17.1 gm/dL (13.0-17.5); Lymphocytes # (A) 2.2 k/uL (1.0-4.8); Lymphocytes % (A) 31 %; MCH 31.2 pg (25.0-35.0); MCHC 32.7 g/dL (31.0-37.0); MCV 95.5 fL (80.0-100.0); Mean Platelet Volume 7.5; Monocytes # (A) 0.6 k/uL (0-1.0); Monocytes % (A) 9 %; Neutrophils # (A) 3.9 k/uL (1.3-7.7); Neutrophils % (A) 54 %; Platelet Count 183 k/uL (150-450); RBC 5.49 m/uL (4.30-5.90); RDW 14.1 % (11.5-15.5); WBC 7.2 k/uL (3.8-10.6)
[2021-03-29 19:36] LABS: INR 0.9 (<1.2); Partial Thromboplastin Time 22.4 sec (22.0-30.0); Prothrombin Time 10.2 sec (9.0-12.0)
[2021-03-29 19:53] LABS: Glucose,Whole Blood 193 mg/dL (75-99)
[2021-03-29] MEDS: HEPARIN SOD,PORK IN 0.45% NACL 25,000 UNIT in 0.45% NACL 1 250ML.BAG IV SCH (20:14)
[2021-03-29] MEDS ORDERED: METOPROLOL SUCCINATE (ER) 50 MG TAB.ER.24H PO SCH (21:00)
[2021-03-29] MEDS ORDERED: SODIUM CHLORIDE 0.9% 1,000 ML in EMPTY BAG 1 BAG IV ONE (23:59)
[2021-03-30] MEDS: INSULIN ASPART (NovoLOG) 100 UNIT/ML VIAL SQ SCH ×4 (05:25→20:22)
[2021-03-30] MEDS: PANTOPRAZOLE 40 MG TABLET PO SCH (05:28)
[2021-03-30] MEDS: ATORVASTATIN 40 MG TAB PO SCH (05:29)
[2021-03-30] MEDS: hydroCHLOROthiazide 25 MG TAB PO SCH (05:29)
[2021-03-30] MEDS: ASPIRIN 81 MG PO SCH (05:29)
[2021-03-30] MEDS: METOPROLOL SUCCINATE (ER) 50 MG TAB.ER.24H PO SCH (05:32)
[2021-03-30] MEDS: LOSARTAN 50 MG TAB PO SCH (05:32)
[2021-03-30 05:58] LABS: Glucose,Whole Blood 94 mg/dL (75-99)
[2021-03-30] MEDS ORDERED: ASPIRIN 325 MG TAB PO ONE (06:00)
[2021-03-30] MEDS ORDERED: HEPARIN SODIUM,PORCINE 10,000 UNIT in SODIUM CHLORIDE 0.9% 1,000 ML IRRIGATION PRN (07:00)
[2021-03-30] MEDS ORDERED: HEPARIN SODIUM,PORCINE 2,500 UNIT in SODIUM CHLORIDE 0.9% 250 ML IRRIGATION PRN (07:00)
[2021-03-30] MEDS ORDERED: MIDAZOLAM 2 MG/2 ML VIAL IVP ONE ×2 (07:44→07:55)
[2021-03-30] MEDS ORDERED: IV FLUID CONTINUATION 900 ML IV ONE (07:47)
[2021-03-30] MEDS ORDERED: LIDOCAINE 1% INJ 10MG/ML (20 ML MDV) SQ ONE (07:47)
[2021-03-30] MEDS ORDERED: HEPARIN SODIUM 1,000 UN/ML (10ML VL) IV ONE ×2 (08:00→08:20)
[2021-03-30] MEDS ORDERED: TIROFIBAN 12.5MG-250ML NS 250 ML IV ONE (08:07)
[2021-03-30] MEDS ORDERED: TIROFIBAN BOLUS 12.5MG/250 ML BAG IV ONE (08:07)
[2021-03-30] MEDS ORDERED: niCARdipine Syringe (1,000 mcg/10 mL) INTRACORON ONE ×2 (08:30→08:49)
[2021-03-30] MEDS ORDERED: NITROGLYCERIN 1000MCG/10ML SYRINGE INTRACORON ONE (08:30)
[2021-03-30] MEDS ORDERED: fentaNYL (PF) 50 MCG/ML 2 ML AMP IVP ONE (08:35)
[2021-03-30] MEDS ORDERED: FUROSEMIDE 10 MG/ML 4 ML VIAL IV ONE (08:40)
[2021-03-30] MEDS ORDERED: IOPAMIDOL-370 100ML BTL INJ ONE ×3 (08:52→09:01)
[2021-03-30] MEDS ORDERED: ASPIRIN 325 MG TAB PO SCH (09:00)
[2021-03-30] MEDS ORDERED: TICAGRELOR 90 MG TAB PO ONE (09:16)
[2021-03-30 09:39] LABS: Glucose,Whole Blood 139 mg/dL (75-99)
--- NOTE | 2021-03-30 10:41 | PCN ---
PROCEDURE NOTE DATE OF SERVICE: 03/30/2021. PROCEDURE: 1. Left heart catheterization, coronary angiography and selective injection of bypass grafts. 2. Percutaneous transluminal coronary angioplasty and stenting of a totally occluded vein graft to the right coronary artery filled with thrombus. PERFORMED BY: Dr. Serafin Sloan. Moderate conscious sedation time was 1 hour and 23 minutes. CLINICAL INFORMATION: Mr. Armand Jovel is a 46-year-old gentleman with a known history of hypertension, hyperlipidemia, type 2 diabetes, obesity, obstructive sleep apnea. He weighs more than 350 pounds and had previous bypass surgery about 10 years ago with a vein graft to the OM, PDA branch of RCA and a TODD to LAD. In 2014, his grafts were patent. He had total occlusion of lytton RCA and also occlusion of mid LAD and mid circumflex. He sees in the [place] area. He came into the hospital with chest pain and troponin elevation and was advised cardiac cath after due discussion regarding risks, benefits and options. PROCEDURE NOTE: The patient's radial arteries were very difficult to palpate. The procedure therefore was performed from right femoral approach. Under local anesthesia and strict aseptic precautions, a 6-Mont[place] introducer was placed in the right femoral artery. Using a standard left Kelsy catheter, I performed coronary angiography of the left system. The same catheter was used to get a picture of the lytton graft of RCA, since the catheter went into the RCA graft. RCA graft was totally occluded without much outflow. Entire graft was filled with thrombus. I went ahead and used a Olayinka catheter to perform a TODD injection, and TODD was widely patent. I performed intervention of the RCA which was unsuccessful and then went back with an AR2 catheter and did selective coronary angiography of the vein graft to the OM and checked LV pressures, but LV gram was not performed. CARDIAC CATHETERIZATION FINDINGS: The left ventricular end-diastolic pressure was 20 mmHg without any gradient across the aortic valve. CORONARY ANGIOGRAPHY FINDINGS: LEFT MAIN CORONARY ARTERY: Very short vessel, hardly exists, and almost there are 2 separate origins for LAD and circumflex. LEFT ANTERIOR DESCENDING CORONARY ARTERY: This vessel is totally occluded in the mid portion after septal and diagonal branches, and both septal and diagonal branches are diffusely diseased. LEFT POSTERIOR CIRCUMFLEX CORONARY ARTERY: This vessel is totally occluded. The obtuse marginal is totally occluded. Distal circumflex is totally occluded and the opacified vessel is diffusely diseased. RCA was not injected but was found to be totally occluded on a previous cardiac cath from 2014. SAPHENOUS VEIN GRAFT TO THE RCA: This graft is totally occluded in the distal portion at the insertion site without any outflow and the whole clot is filled with contrast and is unable to clear the contrast because of poor outflow. SAPHENOUS VEIN GRAFT TO THE OBTUSE MARGINAL: This graft is patent and opacifies the two branches from obtuse marginal; minor irregularities; no significant disease. LEFT INTERNAL MAMMARY ARTERY GRAFT TO LAD: This graft is widely patent at its origin and insertion site and opacifies the entire LAD and is a good-quality graft with good flow. SAPHENOUS VEIN GRAFT TO THE RCA: This graft is totally occluded. The occlusion seems to be at the insertion site and the entire vein graft is filled with clot. The vein graft is about 5-6 mm and the lytton vessel is about 3 mm or maybe a little less. There is a big mismatch. The distal vein graft is occluded at the insertion site without much antegrade flow. FINAL IMPRESSION: This patient has a total occlusion of lytton RCA from previous study. The LAD has total occlusion in the mid portion and circumflex is occluded in the mid portion with few with diffuse disease. Obtuse marginal is totally occluded. Vein graft to the RCA is occluded distally and filled with clot and sluggish flow. Vein graft to the obtuse marginal is patent with good flow, and TODD to LAD is patent with good flow. Filling pressures are elevated. No gradient across aortic valve. RECOMMENDATIONS: I proceeded with intervention of the RCA expeditiously. PCI PROCEDURE DETAILS: I used a standard right Kelsy guide catheter to cannulate the right vein graft and a run-through 0.014 wire was used to cross the lesion. A 3.0 caliber Trek balloon was used to dilate the insertion site. I deployed a 3.5, 18 mm stent in the lytton vessel just beyond the insertion site. There was very modest improvement in flow noted. The entire clot was filled with thrombus. I then did an aspiration thrombectomy and was able to retrieve heavy chunks of clot. Flow remained sluggish. Patient was given heparin intravenously of about 8500 units and he also received Aggrastat infusion. ACT was about 256. The patient received 180 mg of Brilinta. Multiple inflations of the vein graft were given. I deployed a 4.0 caliber 18 mm stent in the distal end of the graft and another 4.0 caliber 23 mm stent proximal to that stent. Entire stented area was dilated with a 5.0 NC Trek balloon. In spite of multiple inflations and in spite of multiple runs with aspiration thrombectomy, the flow remained very poor without much outflow. This was therefore an unsuccessful procedure without improvement in flow beyond the total occlusion at the insertion site of the graft. The patient had mild inferior ST-elevation but no chest discomfort of significance. He remained hemodynamically stable. Details of the procedure were explained to the patient. He received more than 250 mL of dye. I explained to him that the vein graft is occluded, there is a significant mismatch, and there is a heavy thrombus burden. We will therefore continue Aggrastat for the next 12 hours and treat him with dual antiplatelet therapy, and hopefully there will be some improvement, but he definitely has myocardial infarction, and this was explained to the patient. I also called his Moraima at home and explained the details of unsuccessful procedure and the thrombus-laden vessel which was totally occluded. Prognosis remains somewhat guarded. The patient was sent to the ICU in a hemodynamically stable condition. MMODL / IJN: [id number] /
[2021-03-30] MEDS: ALPRAZolam 0.5 MG TAB PO PRN (10:58)
[2021-03-30] MEDS: TIROFIBAN 12.5MG-250ML NS 250 ML IV SCH ×2 (11:00→19:07)
[2021-03-30] MEDS: SODIUM CHLORIDE 0.9% 1,000 ML IV SCH ×2 (11:05→22:38)
[2021-03-30 11:58] LABS: Glucose,Whole Blood 131 mg/dL (75-99)
[2021-03-30 12:22] LABS: Basophils % (A) 0 %; Eosinophils # (A) 0.1 k/uL (0-0.7); Eosinophils % (A) 2 %; HCT 51.1 % (39.0-53.0); HGB 17.4 gm/dL (13.0-17.5); Lymphocytes # (A) 1.7 k/uL (1.0-4.8); Lymphocytes % (A) 22 %; MCH 31.8 pg (25.0-35.0); MCHC 34.1 g/dL (31.0-37.0); MCV 93.3 fL (80.0-100.0); Mean Platelet Volume 7.1; Monocytes # (A) 0.5 k/uL (0-1.0); Monocytes % (A) 6 %; Neutrophils # (A) 5.2 k/uL (1.3-7.7); Neutrophils % (A) 68 %; Platelet Count 205 k/uL (150-450); RBC 5.48 m/uL (4.30-5.90); RDW 14.2 % (11.5-15.5); WBC 7.7 k/uL (3.8-10.6)
[2021-03-30 12:27] LABS: Prothrombin Time 10.8 sec (9.0-12.0)
--- NOTE | 2021-03-30 13:06 | P.PN ---
Subjective Progress Note Date: 03/30/21 Patient was seen by me this morning. He denies any chest pain. He was scheduled for left heart cath. No acute events overnight reported by nursing staff. Objective - Vital Signs Vital signs: Vital Signs Temp 98.2 F 03/30/21 04:00 Pulse 75 03/30/21 11:00 Resp 16 03/30/21 11:00 BP 156/123 03/30/21 11:00 Pulse Ox 96 03/30/21 11:00 Intake & Output 03/29/21 03/30/21 03/30/21 18:59 06:59 18:59 Intake Total 240 559.995 570 Output Total 3425 Balance 240 559.995 -2855 Weight 174.633 kg Intake: IV 570 Sodium Chloride 0.9% 1, 150 000 ml @ 75 mls/hr IV . [id number] RICHELLE Rx#:[id number] Intake, IV Titration 109.995 Amount Heparin Sod,Pork in 0.45% 109.995 NaCl 25,000 unit In 0.45 % NaCl 1 250ml.bag @ 5.73 UNITS/KG/HR 10.006 mls/ hr IV .Q24H RICHELLE Rx#: [id number] Oral 240 450 Output: Urine 3425 Other: Voiding Method Toilet Indwelling Catheter Urinal # Voids 1 - Exam General: The patient is awake and alert, in no distress Eye: there is normal conjunctiva bilaterally. Neck: The neck is supple, there is no JVD. Cardiovascular: Normal S1-S2, no S3-S4, no murmurs. Respiratory: Lungs clear to auscultation bilaterally Gastrointestinal: Abdomen is soft, nontender Musculoskeletal: There is no pedal edema. Neurological:. Speech is normal. Skin: Skin is warm and dry - Labs CBC & Chem 7: 03/30/21 12:08 03/28/21 20:06 Labs: Abnormal Lab Results - Last 24 Hours (Table) 03/29/21 03/29/21 03/29/21 Range/Units 07:24 16:53 19:52 APTT (22.0-30.0) sec POC Glucose (mg/dL) 106 H 193 H (75-99) mg/dL Hemoglobin A1c 6.2 H (4.0-6.0) % 03/30/21 03/30/21 03/30/21 Range/Units 00:13 09:37 11:56 APTT 30.1 H (22.0-30.0) sec POC Glucose (mg/dL) 139 H 131 H (75-99) mg/dL Hemoglobin A1c (4.0-6.0) % Assessment and Plan Assessment: This is a 46-year-old male with past medical history noted below who presented to the emergency room with chest pain. He should was evaluated in the ER and admitted to the hospital for further management of his medical problems noted below. 1. Non-ST elevation [place], and started on IV heparin drip. Seen and evaluated by cardiology plan for left heart cath today. Echocardiogram showed preserved ejection fraction of 50-55% with no significant for motion abnormalities. Patient is maintained on aspirin, Lipitor, metoprolol 2. History of coronary artery disease with prior CABG 3. Obstructive sleep apnea noncompliant with his CPAP machine at home 4. Chronic medical problems: Essential hypertension, hyperlipidemia, prediabetes, morbid obesity Today, I reviewed his medication list and lab work results. CT angiogram of the chest was negative for PE.
[2021-03-30] MEDS ORDERED: ONDANSETRON 4 MG/2 ML VIAL IVP PRN (13:32)
[2021-03-30] MEDS: ACETAMINOPHEN TAB 325 MG TAB PO PRN (16:52)
[2021-03-30 16:56] LABS: Glucose,Whole Blood 120 mg/dL (75-99)
[2021-03-30] MEDS: HEPARIN SOD,PORK IN 0.45% NACL 25,000 UNIT in 0.45% NACL 1 250ML.BAG IV SCH (19:07)
[2021-03-30 20:08] LABS: Glucose,Whole Blood 152 mg/dL (75-99)
[2021-03-30] MEDS ORDERED: HYDROcodone/APAP 5-325MG 1 EACH TAB PO STA (20:17)
[2021-03-30] MEDS: ATORVASTATIN 80 MG TAB PO SCH (20:24)
[2021-03-30] MEDS: TICAGRELOR 90 MG TAB PO SCH (20:24)
[2021-03-31] MEDS: ACETAMINOPHEN TAB 325 MG TAB PO PRN ×3 (00:31→20:43)
[2021-03-31 04:27] LABS: Basophils % (A) 0 %; Eosinophils # (A) 0.1 k/uL (0-0.7); Eosinophils % (A) 1 %; HCT 50.1 % (39.0-53.0); HGB 16.4 gm/dL (13.0-17.5); Lymphocytes # (A) 1.7 k/uL (1.0-4.8); Lymphocytes % (A) 15 %; MCH 31.3 pg (25.0-35.0); MCHC 32.7 g/dL (31.0-37.0); MCV 95.9 fL (80.0-100.0); Mean Platelet Volume 7.6; Monocytes % (A) 8 %; Neutrophils # (A) 8.9 k/uL (1.3-7.7); Neutrophils % (A) 74 %; Platelet Count 184 k/uL (150-450); RBC 5.22 m/uL (4.30-5.90); RDW 14.2 % (11.5-15.5)
[2021-03-31 05:10] LABS: African American GFR (CKD) >90 (>60 ml/min/1.73 sqM); Anion Gap 9 mmol/L; Blood Urea Nitrogen 22 mg/dL (9-20); Carbon Dioxide 29 mmol/L (22-30); Chloride 101 mmol/L (98-107); Glucose 149 mg/dL (74-99); Non-African American GFR(CKD) 88 (>60 ml/min/1.73 sqM); Potassium 4.1 mmol/L (3.5-5.1); Sodium 139 mmol/L (137-145)
[2021-03-31 07:13] LABS: Glucose,Whole Blood 107 mg/dL (75-99)
[2021-03-31] MEDS: PANTOPRAZOLE 40 MG TABLET PO SCH (07:38)
[2021-03-31] MEDS: INSULIN ASPART (NovoLOG) 100 UNIT/ML VIAL SQ SCH ×4 (07:38→20:31)
[2021-03-31] MEDS: ASPIRIN 81 MG PO SCH (09:40)
[2021-03-31] MEDS: TICAGRELOR 90 MG TAB PO SCH ×2 (09:40→19:34)
[2021-03-31] MEDS: hydroCHLOROthiazide 25 MG TAB PO SCH (09:40)
[2021-03-31] MEDS: METOPROLOL SUCCINATE (ER) 50 MG TAB.ER.24H PO SCH (09:40)
[2021-03-31] MEDS: LOSARTAN 50 MG TAB PO SCH (09:40)
[2021-03-31] MEDS: HYDROcodone/APAP 5-325MG 1 EACH TAB PO PRN ×3 (09:42→22:51)
[2021-03-31 11:39] LABS: Glucose,Whole Blood 110 mg/dL (75-99)
--- NOTE | 2021-03-31 13:07 | PN ---
PROGRESS NOTE FOLLOW-UP NOTE: Armand is a 46-year-old gentleman who presented to hospital on 03/29/2021 with chest pain. He had mild pie-SB-dututuv-elevation DC. Due to this he was initially seen by Dr. Serafin Sloan, my associate, who subsequently performed cardiac catheterization on him and angioplasty of a totally occluded venous graft to the right coronary artery. The graft was full of thrombus and patient was sent to the ICU. He had a fairly uneventful course through last night. This morning he is free of chest pain or difficulty in breathing. Remains in sinus rhythm and is hemodynamically stable. I obtained a troponin on him. His troponin came back at 22.9. His first four troponins were 0.01, 0.01, 0.05 and 0.2. I do not have any EKG on him today. And I will obtain one. On exam, comfortable at rest. Vital signs are stable. Chest exam reveals good air entry bilaterally. Heart exam reveals first and second heart sounds. No gallop. Abdomen is soft. Examination of extremities did not reveal any edema. Peripheral pulses are felt. An echocardiogram on this admission revealed normal LV systolic function. Labs show a hemoglobin of 16.4, platelet count is 184. Potassium is 4.1, creatinine is 1. ASSESSMENT: Acute idg-MV-gcfhmip-elevation myocardial infarction, status post catheterization and angioplasty of venous graft to the right coronary artery that was filled with thrombus, and the patient had a myocardial infarction. He had multiple runs of aspiration thrombectomy; in spite of that, flow remained very poor, and he had mild inferior ST- elevation at the end of the procedure. He is currently on aspirin, Lipitor, Cozaar, Toprol and Brilinta. I will obtain an EKG on him this morning, repeat an echocardiogram tomorrow -- a limited echo to reassess his LV function. Hopefully home Saturday, depending upon how he does. MMODL / IJN: [id number] /
--- NOTE | 2021-03-31 13:34 | P.PN ---
Subjective Progress Note Date: 03/31/21 Patient is doing fairly well today. No acute events on front desk monitor overnight. Patient denies chest pain or discomfort. He is describing some epigastric heaviness and feeling gasy Objective - Vital Signs Vital signs: Vital Signs Temp 98.4 F 03/31/21 12:00 Pulse 63 03/31/21 12:00 Resp 23 03/31/21 12:00 BP 117/85 03/31/21 12:00 Pulse Ox 94 L 03/31/21 12:00 Intake & Output 03/30/21 03/31/21 03/31/21 18:59 06:59 18:59 Intake Total 1170 1175 Output Total 4425 0 Balance -3255 1175 0 Weight 178.4 kg Intake: IV 1170 675 Sodium Chloride 0.9% 1, 750 675 000 ml @ 75 mls/hr IV . [id number] RICHELLE Rx#:[id number] Oral 500 Output: Urine 4425 0 Other: Voiding Method Indwelling Catheter Urinal # Voids 0 0 - Exam General: The patient is awake and alert, in no distress Eye: there is normal conjunctiva bilaterally. Neck: The neck is supple, there is no JVD. Cardiovascular: Normal S1-S2, no S3-S4, no murmurs. Respiratory: Lungs clear to auscultation bilaterally Gastrointestinal: Abdomen is soft, nontender Musculoskeletal: There is no pedal edema. Neurological:. Speech is normal. Skin: Skin is warm and dry - Labs CBC & Chem 7: 03/31/21 03:48 03/31/21 03:48 Labs: Abnormal Lab Results - Last 24 Hours (Table) 03/30/21 03/30/21 03/31/21 Range/Units 16:55 20:06 03:48 WBC 12.0 H (3.8-10.6) k/uL Neutrophils # 8.9 H (1.3-7.7) k/uL BUN (9-20) mg/dL Glucose (74-99) mg/dL POC Glucose (mg/dL) 120 H 152 H (75-99) mg/dL Troponin I (0.000-0.034) ng/mL 03/31/21 03/31/21 03/31/21 Range/Units 03:48 03:48 07:09 WBC (3.8-10.6) k/uL Neutrophils # (1.3-7.7) k/uL BUN 22 H (9-20) mg/dL Glucose 149 H (74-99) mg/dL POC Glucose (mg/dL) 107 H (75-99) mg/dL Troponin I 22.900 H* (0.000-0.034) ng/mL 03/31/21 Range/Units 11:38 WBC (3.8-10.6) k/uL Neutrophils # (1.3-7.7) k/uL BUN (9-20) mg/dL Glucose (74-99) mg/dL POC Glucose (mg/dL) 110 H (75-99) mg/dL Troponin I (0.000-0.034) ng/mL Assessment and Plan Assessment: This is a 46-year-old male with past medical history noted below who presented to the emergency room with chest pain. He should was evaluated in the ER and admitted to the hospital for further management of his medical problems noted below. 1. Non-ST elevation [place], and started on IV heparin drip. Seen and evaluated by cardiology and underwent left heart catheterization with angioplasty of venous graft with extensive thrombus burden and no significant improvement in blood flow. Patient was managed medically and currently on dual antiplatelet therapy, Lipitor, and Cozaar.. Echocardiogram showed preserved ejection fraction of 50- 55% with no significant for motion abnormalities. 2. History of coronary artery disease with prior CABG 3. Obstructive sleep apnea noncompliant with his CPAP machine at home 4. Chronic medical problems: Essential hypertension, hyperlipidemia, prediabete s, morbid obesity Today, I reviewed his medication list and lab work results. CT angiogram of the chest was negative for PE. Plan for a repeat limited echo tomorrow to reassess ejection fraction. Continue medical management as directed by cardiology.
[2021-03-31] MEDS ORDERED: ACETAMINOPHEN IV (For NPO) 1,000 MG in EMPTY BAG 1 BAG IVPB STA (14:58)
[2021-03-31] MEDS: SODIUM CHLORIDE 0.9% 1,000 ML IV SCH (16:32)
[2021-03-31 16:40] LABS: Glucose,Whole Blood 128 mg/dL (75-99)
[2021-03-31] MEDS: ATORVASTATIN 80 MG TAB PO SCH (19:34)
[2021-03-31 19:55] LABS: Glucose,Whole Blood 119 mg/dL (75-99)
[2021-03-31] MEDS: ALPRAZolam 0.5 MG TAB PO PRN (22:51)
[2021-04-01 06:02] LABS: Glucose,Whole Blood 131 mg/dL (75-99)
[2021-04-01] MEDS: PANTOPRAZOLE 40 MG TABLET PO SCH (06:36)
[2021-04-01] MEDS: HYDROcodone/APAP 5-325MG 1 EACH TAB PO PRN (06:37)
[2021-04-01] MEDS: INSULIN ASPART (NovoLOG) 100 UNIT/ML VIAL SQ SCH ×4 (06:37→20:07)
[2021-04-01] MEDS: LOSARTAN 50 MG TAB PO SCH (09:09)
[2021-04-01] MEDS: hydroCHLOROthiazide 25 MG TAB PO SCH (09:09)
[2021-04-01] MEDS: TICAGRELOR 90 MG TAB PO SCH ×2 (09:09→20:15)
[2021-04-01] MEDS: METOPROLOL SUCCINATE (ER) 50 MG TAB.ER.24H PO SCH (09:09)
[2021-04-01] MEDS: ASPIRIN 81 MG PO SCH (09:09)
--- NOTE | 2021-04-01 11:07 | P.PN ---
Subjective Progress Note Date: 04/01/21 HISTORY OF PRESENT ILLNESS: This is a pleasant 46-year-old male past medical history significant for or an area artery disease status post bypass grafting with TODD to LAD D, SVG to PDA and OM 2011 at [facility], hypertension, dyslipidemia, diabetes mellitus, obstructive sleep apnea and morbid obesity. He follows in the office with Dr. Keane. We have been asked to see in consultation for chest pain. He is experiencing a sharp stabbing-like pain in the left precordial region that is exacerbated by deep inspiration. He underwent a CTA on admission that was neg ative for pulmonary embolism. EKG reveals sinus mechanism heart rate of 80 with intraventricular conduction delay and T-wave inversions inferiorly, consistent with previous EKGs. No acute changes appreciated. Laboratory data reviewed, WBC 10.7, hemoglobin 16.9, platelets 196, sodium 136, potassium 3.7, creatinine 0.99, magnesium 1.6, first 2 troponins were negative third troponin 0.059. Current daily cardiac medications include aspirin 81 mg daily, atorvastatin 40 mg daily, losartan 100 mg daily, Toprol 50 mg at bedtime and hydrochlorothiazide 25 mg daily. 2014 he underwent a cardiac catheterization revealing 100% stenosis of the proximal LAD, 100% stenosis of the mid circumflex, 100% stenosis of the proximal RCA with patent vein grafts 3. At that time his ejection fraction was 50-55% to moderately enlarged right ventricle. In 2018 he underwent a dobutamine stress echocardiogram that was inconclusive secondary to inability to achieve target heart rate. He states he saw his primary stock grader thereafter and had further testing however he can't remember exactly what he had done. He is sure he has not had a heart cath since 2014. 04/01/2021 Patient is status post cardiac catheterization with Dr. Sloan on 03/30/2021 with stenting x 3 to a totally occluded vein graft to the right coronary artery filled with thrombus. Patient examined this morning. He is sitting up on the side of the bed. He denies chest pain or pressure. He reports shortness of mariano ath with exertion. Vital signs stable. Blood pressure 119/70. Telemetry reveals sinus mechanism with a heart rate in the 60s. He is on room air with oxygen saturations greater than 92%. He is afebrile. PHYSICAL EXAM: VITAL SIGNS: Reviewed. GENERAL: Well-developed in no acute distress. NECK: Supple. No JVD or thyromegaly LUNGS: Respirations even and unlabored. Lungs essentially clear to auscultation bilaterally. HEART: Regular rate and rhythm. S1 and S2 heard. EXTREMITIES: Normal range of motion. No clubbing or cyanosis. Peripheral pulses intact. No lower extremity edema ASSESSMENT: Chest pain, s/p cardiac cath with stenting x 3 to totally occluded vein graft to RCA, with sluggish flow post procedure Coronary artery disease status post bypass grafting Hypertension Dyslipidemia Diabetes mellitus Obstructive sleep apnea Morbid obesity, BMI 52 PLAN: Continue current cardiac medications Obtain EKG this morning Limited echo today Further recommendations pending patient course Possible discharge home tomorrow Nurse practitioner note has been reviewed by physician. Signing provider agrees with the documented findings, assessment, and plan of care. Objective - Vital Signs Vital signs: Vital Signs Temp 98.4 F 04/01/21 09:00 Pulse 64 04/01/21 09:00 Resp 18 04/01/21 09:00 BP 119/70 04/01/21 09:00 Pulse Ox 91 L 04/01/21 09:00 Intake & Output 03/31/21 04/01/21 04/01/21 18:59 06:59 18:59 Intake Total 444 240 Output Total 350 Balance 94 240 Weight 176.4 kg Intake: Oral 444 240 Output: Urine 350 Other: Voiding Method Urinal Urinal # Voids 0 2 - Labs CBC & Chem 7: 03/31/21 03:48 03/31/21 03:48 Labs: Abnormal Lab Results - Last 24 Hours (Table) 03/31/21 03/31/21 03/31/21 Range/Units 11:38 16:37 19:53 POC Glucose (mg/dL) 110 H 128 H 119 H (75-99) mg/dL 04/01/21 Range/Units 06:01 POC Glucose (mg/dL) 131 H (75-99) mg/dL
[2021-04-01 11:48] LABS: Glucose,Whole Blood 92 mg/dL (75-99)
--- NOTE | 2021-04-01 12:00 | P.PN ---
Subjective Progress Note Date: 04/01/21 Patient is doing fairly well today. No acute events on quality assurance monitor overnight. Patient denies chest pain or discomfort. Objective - Vital Signs Vital signs: Vital Signs Temp 98.4 F 04/01/21 09:00 Pulse 64 04/01/21 09:00 Resp 18 04/01/21 09:00 BP 119/70 04/01/21 09:00 Pulse Ox 91 L 04/01/21 09:00 Intake & Output 03/31/21 04/01/21 04/01/21 18:59 06:59 18:59 Intake Total 444 240 Output Total 350 Balance 94 240 Weight 176.4 kg Intake: Oral 444 240 Output: Urine 350 Other: Voiding Method Urinal Urinal # Voids 0 2 - Exam General: The patient is awake and alert, in no distress Eye: there is normal conjunctiva bilaterally. Neck: The neck is supple, there is no JVD. Cardiovascular: Normal S1-S2, no S3-S4, no murmurs. Respiratory: Lungs clear to auscultation bilaterally Gastrointestinal: Abdomen is soft, nontender Musculoskeletal: There is no pedal edema. Neurological:. Speech is normal. Skin: Skin is warm and dry - Labs CBC & Chem 7: 03/31/21 03:48 03/31/21 03:48 Labs: Abnormal Lab Results - Last 24 Hours (Table) 03/31/21 03/31/21 04/01/21 Range/Units 16:37 19:53 06:01 POC Glucose (mg/dL) 128 H 119 H 131 H (75-99) mg/dL Assessment and Plan Assessment: This is a 46-year-old male with past medical history noted below who presented to the emergency room with chest pain. He should was evaluated in the ER and admitted to the hospital for further management of his medical problems noted below. 1. Non-ST elevation [place], and started on IV heparin drip. Seen and evaluated by cardiology and underwent left heart catheterization with angioplasty of venous graft with extensive thrombus burden and no significant improvement in blood flow. Patient was managed medically and currently on dual antiplatelet therapy, Lipitor, and Cozaar.. Echocardiogram showed preserved ejection fraction of 50- 55% with no significant for motion abnormalities. 2. History of coronary artery disease with prior CABG 3. Obstructive sleep apnea noncompliant with his CPAP machine at home 4. Chronic medical problems: Essential hypertension, hyperlipidemia, prediabetes, morbid obesity Today, I reviewed his medication list and lab work results. CT angiogram of the chest was negative for PE. Plan for a repeat limited echo to reassess ejection fraction pending. Continue medical management as directed by cardiology.
--- NOTE | 2021-04-01 13:08 | ECHOF ---
Referral Reason:LV function MEASUREMENTS -------- HEIGHT: 182.9 cm WEIGHT: 178.3 kg BP: 134/80 IVSd: 1.6 cm (0.6 - 1.1) LVIDd: 5.2 cm (3.9 - 5.3) LVPWd: 1.7 cm (0.6 - 1.1) IVSs: 2.1 cm LVIDs: 3.6 cm LVPWs: 2.0 cm FINDINGS -------- Sinus rhythm. This was a technically difficult study with suboptimal views. Limited Study The left ventricular size is normal. There is moderate concentric left ventricular hypertrophy. O verall left ventricular systolic function is low-normal with, an EF between 50 - 55 %. Septal wall motion is delayed and consistent with prior cardiac surgery. 5.0mg of Lumason was utilized for enhancement of images There is no pericardial effusion. CONCLUSIONS -------- 1. The left ventricular size is normal. 2. There is moderate concentric left ventricular hypertrophy. 3. Overall left ventricular systolic function is low-normal with, an EF between 50 - 55 %. 4. Septal wall motion is delayed and consistent with prior cardiac surgery. DENTAL COORDINATOR: Lexi Field RDCS
[2021-04-01 16:50] LABS: Glucose,Whole Blood 184 mg/dL (75-99)
[2021-04-01 19:51] LABS: Glucose,Whole Blood 114 mg/dL (75-99)
[2021-04-01] MEDS: ATORVASTATIN 80 MG TAB PO SCH (20:15)
[2021-04-02 05:47] LABS: Glucose,Whole Blood 117 mg/dL (75-99)
[2021-04-02] MEDS: INSULIN ASPART (NovoLOG) 100 UNIT/ML VIAL SQ SCH ×2 (06:02→11:43)
[2021-04-02] MEDS: PANTOPRAZOLE 40 MG TABLET PO SCH (06:31)
[2021-04-02] MEDS: ASPIRIN 81 MG PO SCH (08:04)
[2021-04-02] MEDS: LOSARTAN 50 MG TAB PO SCH (08:04)
[2021-04-02] MEDS: hydroCHLOROthiazide 25 MG TAB PO SCH (08:04)
[2021-04-02] MEDS: METOPROLOL SUCCINATE (ER) 50 MG TAB.ER.24H PO SCH (08:04)
[2021-04-02] MEDS: TICAGRELOR 90 MG TAB PO SCH (08:04)
[2021-04-02 08:10] LABS: Basophils % (A) 0 %; Eosinophils # (A) 0.1 k/uL (0-0.7); Eosinophils % (A) 1 %; HCT 46.3 % (39.0-53.0); HGB 14.9 gm/dL (13.0-17.5); Lymphocytes # (A) 1.8 k/uL (1.0-4.8); Lymphocytes % (A) 19 %; MCH 30.8 pg (25.0-35.0); MCHC 32.2 g/dL (31.0-37.0); MCV 95.5 fL (80.0-100.0); Mean Platelet Volume 7.4; Monocytes # (A) 0.9 k/uL (0-1.0); Monocytes % (A) 9 %; Neutrophils # (A) 6.4 k/uL (1.3-7.7); Neutrophils % (A) 68 %; Platelet Count 174 k/uL (150-450); RBC 4.85 m/uL (4.30-5.90); RDW 14.1 % (11.5-15.5); WBC 9.5 k/uL (3.8-10.6)
[2021-04-02 08:20] LABS: African American GFR (CKD) >90 (>60 ml/min/1.73 sqM); Anion Gap 13 mmol/L; Blood Urea Nitrogen 20 mg/dL (9-20); Calcium 9.2 mg/dL (8.4-10.2); Carbon Dioxide 26 mmol/L (22-30); Chloride 96 mmol/L (98-107); Glucose 129 mg/dL (74-99); Non-African American GFR(CKD) >90 (>60 ml/min/1.73 sqM); Potassium 4.1 mmol/L (3.5-5.1); Sodium 135 mmol/L (137-145)
[2021-04-02 09:52] VITALS: RESP 18
[2021-04-02] MEDS ORDERED: ISOSORBIDE MONONITRATE ER 30 MG TAB.ER.24H PO SCH (11:00)
--- NOTE | 2021-04-02 11:03 | P.DS ---
Providers Date of admission: 03/30/21 09:00 Expected date of discharge: 04/02/21 Attending physician: Blue Henley Consults: 03/29/21 00:19 Consult Physician Urgent Consulting Provider: Norberto Gilmore Consult Reason/Comments: cp Do you want consulting provider notified?: Yes Primary care physician: Roman [facility] Course: This is a 46-year-old male with past medical history noted below who presented to the emergency room with chest pain. He should was evaluated in the ER and admitted to the hospital for further management of his medical problems noted below. 1. Non-ST elevation UT, and started on IV heparin drip. Seen and evaluated by cardiology and underwent left heart catheterization with angioplasty of venous graft with extensive thrombus burden and no significant improvement in blood flow. Patient was managed medically and currently on dual antiplatelet therapy, Lipitor, and Cozaar.. Echocardiogram showed preserved ejection fraction of 50- 55% with no significant for motion abnormalities. 2. History of coronary artery disease with prior CABG 3. Obstructive sleep apnea noncompliant with his CPAP machine at home 4. Chronic medical problems: Essential hypertension, hyperlipidemia, prediabetes, morbid obesity Today, I reviewed his medication list and lab work results. Patient is feeling fairly well and looking forward to be discharged home. CT angiogram of the chest was negative for PE. Repeat limited echo showed preserved EF. Patient will be discharged home in a stable condition. He will follow-up with PCP and cardiology as directed. Patient Condition at Discharge: Fair Plan - Discharge Summary Discharge Rx Participant: No New Discharge Prescriptions: New Ticagrelor [Brilinta] 90 mg PO BID #60 tab Isosorbide Mononitrate ER [Imdur] 30 mg PO DAILY #30 tab.er.24h Nitroglycerin Sl Tabs [Nitrostat] 0.4 mg SUBLINGUAL Q5M PRN #3 tab PRN Reason: Chest Pain Continue Atorvastatin [Lipitor] 40 mg PO DAILY Metoprolol Succinate (ER) [Toprol XL] 50 mg PO HS Losartan Potassium 100 mg PO DAILY hydroCHLOROthiazide 25 mg PO DAILY Aspirin 81 mg PO DAILY Omeprazole 40 mg PO DAILY Multivitamins, Thera [Multivitamin (formulary)] 1 tab PO DAILY sitaGLIPtin PHOSPHATE [Januvia] 100 mg PO DAILY Cholecalciferol (Vitamin D3) [Vitamin D3 (125 MCG = 5,000 IU)] 125 mcg PO DAILY Discharge Medication List Atorvastatin [Lipitor] 40 mg PO DAILY 10/13/14 [History] Aspirin 81 mg PO DAILY 02/20/20 [History] Losartan Potassium 100 mg PO DAILY 02/20/20 [History] Metoprolol Succinate (ER) [Toprol XL] 50 mg PO HS 02/20/20 [History] hydroCHLOROthiazide 25 mg PO DAILY 02/20/20 [History] Omeprazole 40 mg PO DAILY 07/06/20 [History] Cholecalciferol (Vitamin D3) [Vitamin D3 (125 MCG = 5,000 IU)] 125 mcg PO DAILY 03/28/21 [History] Multivitamins, Thera [Multivitamin (formulary)] 1 tab PO DAILY 03/28/21 [History] sitaGLIPtin PHOSPHATE [Januvia] 100 mg PO DAILY 03/28/21 [History] Isosorbide Mononitrate ER [Imdur] 30 mg PO DAILY #30 tab.er.24h 04/02/21 [Rx] Nitroglycerin Sl Tabs [Nitrostat] 0.4 mg SUBLINGUAL Q5M PRN #3 tab 04/02/21 [Rx] Ticagrelor [Brilinta] 90 mg PO BID #60 tab 04/02/21 [Rx] Follow up Appointment(s)/Referral(s): Henri Sloan MD [STAFF PHYSICIAN] - 1 Week Roman Brown MD [Primary Care Provider] - 1-2 days Discharge Disposition: HOME SELF-CARE
--- NOTE | 2021-04-02 11:25 | P.PN ---
Subjective Progress Note Date: 04/02/21 HISTORY OF PRESENT ILLNESS: This is a pleasant 46-year-old male past medical history significant for or an area artery disease status post bypass grafting with TODD to LAD D, SVG to PDA and OM 2011 at [facility], hypertension, dyslipidemia, diabetes mellitus, obstructive sleep apnea and morbid obesity. He follows in the office with Dr. Keane. We have been asked to see in consultation for chest pain. He is experiencing a sharp stabbing-like pain in the left precordial region that is exacerbated by deep inspiration. He underwent a CTA on admission that was neg ative for pulmonary embolism. EKG reveals sinus mechanism heart rate of 80 with intraventricular conduction delay and T-wave inversions inferiorly, consistent with previous EKGs. No acute changes appreciated. Laboratory data reviewed, WBC 10.7, hemoglobin 16.9, platelets 196, sodium 136, potassium 3.7, creatinine 0.99, magnesium 1.6, first 2 troponins were negative third troponin 0.059. Current daily cardiac medications include aspirin 81 mg daily, atorvastatin 40 mg daily, losartan 100 mg daily, Toprol 50 mg at bedtime and hydrochlorothiazide 25 mg daily. 2014 he underwent a cardiac catheterization revealing 100% stenosis of the proximal LAD, 100% stenosis of the mid circumflex, 100% stenosis of the proximal RCA with patent vein grafts 3. At that time his ejection fraction was 50-55% to moderately enlarged right ventricle. In 2018 he underwent a dobutamine stress echocardiogram that was inconclusive secondary to inability to achieve target heart rate. 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 He is sure he has not had a heart cath since 2014. 04/01/2021 Patient is status post cardiac catheterization with Dr. Sloan on 03/30/2021 with stenting x 3 to a totally occluded vein graft to the right coronary artery filled with thrombus. Patient examined this morning. He is sitting up on the side of the bed. He denies chest pain or pressure. He reports shortness of mariano ath with exertion. Vital signs stable. Blood pressure 119/70. Telemetry reveals sinus mechanism with a heart rate in the 60s. He is on room air with oxygen saturations greater than 92%. He is afebrile. 04/02/2021 Patient examined this morning at the bedside. Patient denies shortness of breath. He denies chest pain at rest. He reports mild chest discomfort with deep inspiration. Patient has been up ambulating in the hallway this morning. Limited echo obtained revealed ejection fraction 50-55%. Vital signs are stable. Repeat EKG this morning reveals persistent ST elevation in inferior leads, although improved from yesterday's EKG. PHYSICAL EXAM: VITAL SIGNS: Reviewed. GENERAL: Well-developed in no acute distress. NECK: Supple. No JVD or thyromegaly LUNGS: Respirations even and unlabored. Lungs essentially clear to auscultation bilaterally. HEART: Regular rate and rhythm. S1 and S2 heard. EXTREMITIES: Normal range of motion. No clubbing or cyanosis. Peripheral pulses intact. No lower extremity edema ASSESSMENT: Chest pain, s/p cardiac cath with stenting x 3 to totally occluded vein graft to RCA, with sluggish flow post procedure Coronary artery disease status post bypass grafting Hypertension Dyslipidemia Diabetes mellitus Obstructive sleep apnea Morbid obesity, BMI 52 PLAN: Continue current cardiac medications Patient may be discharged home today from a cardiac standpoint Patient to follow up outpatient with Dr. Sloan Nurse practitioner note has been reviewed by physician. Signing provider agrees with the documented findings, assessment, and plan of care. Objective - Vital Signs Vital signs: Vital Signs Temp 98.8 F 04/02/21 08:00 Pulse 85 04/02/21 08:00 Resp 18 04/02/21 08:00 BP 117/79 04/02/21 08:00 Pulse Ox 94 L 04/02/21 08:00 Intake & Output 04/01/21 04/02/21 04/02/21 18:59 06:59 18:59 Intake Total 1020 480 Balance 1020 480 Weight 174.8 kg Intake: Oral 1020 480 Other: # Voids 1 # Bowel Movements 0 - Labs CBC & Chem 7: 04/02/21 07:35 04/02/21 07:35 Labs: Abnormal Lab Results - Last 24 Hours (Table) 04/01/21 04/01/21 04/02/21 Range/Units 16:48 19:49 05:45 Sodium (137-145) mmol/L Chloride (98-107) mmol/L Glucose (74-99) mg/dL POC Glucose (mg/dL) 184 H 114 H 117 H (75-99) mg/dL 04/02/21 Range/Units 07:35 Sodium 135 L (137-145) mmol/L Chloride 96 L (98-107) mmol/L Glucose 129 H (74-99) mg/dL POC Glucose (mg/dL) (75-99) mg/dL
[2021-04-02 11:44] LABS: Glucose,Whole Blood 99 mg/dL (75-99)
[2021-04-02 12:20] VITALS: BP 102/67; PULSE 71; TEMP 99
== END 2021-04-02 13:46 | disposition home or self-care (01) | DRG 251 ==
LOC: EC 19:46 → 1SOBS 03-29 00:19 → 3SCARD 03-29 15:00 → 2SICU 03-30 08:59 → OBSVTOIN 03-30 09:00 → 2SICU 03-30 09:56 → 3SCARD 03-31 14:34
PROVIDERS: ADMIT Internal Medicine; ATTEND Internal Medicine
PROC: B2161ZZ Fluoroscopy of Right and Left Heart using Low Osmolar Contrast (ICD-10-PCS; principal; 2021-03-30 07:30)
PROC: B2111ZZ Fluoroscopy of Multiple Coronary Arteries using Low Osmolar Contrast (ICD-10-PCS; principal; 2021-03-30 07:30)
PROC: B2131ZZ Fluoroscopy of Multiple Coronary Artery Bypass Grafts using Low Osmolar Contrast (ICD-10-PCS; principal; 2021-03-30 07:30)
PROC: B2181ZZ Fluoroscopy of Left Internal Mammary Bypass Graft using Low Osmolar Contrast (ICD-10-PCS; principal; 2021-03-30 07:30)
PROC: 4A023N7 Measurement of Cardiac Sampling and Pressure, Left Heart, Percutaneous Approach (ICD-10-PCS; principal; 2021-03-30 07:30)
PROC: 02C03ZZ Extirpation of Matter from Coronary Artery, One Artery, Percutaneous Approach (ICD-10-PCS; principal; 2021-03-30 07:30)
PROC: 02703ZZ Dilation of Coronary Artery, One Artery, Percutaneous Approach (ICD-10-PCS; principal; 2021-03-30 07:30)
DX: I21.4 Non-ST elevation (NSTEMI) myocardial infarction (principal); I25.810 Atherosclerosis of coronary artery bypass graft(s) without angina pectoris; Z68.43 Body mass index [BMI] 50.0-59.9, adult; I11.9 Hypertensive heart disease without heart failure; E11.9 Type 2 diabetes mellitus without complications; E66.01 Morbid (severe) obesity due to excess calories; I45.9 Conduction disorder, unspecified; R07.89 Other chest pain; K76.0 Fatty (change of) liver, not elsewhere classified; L30.9 Dermatitis, unspecified; J44.9 Chronic obstructive pulmonary disease, unspecified; E78.5 Hyperlipidemia, unspecified; G47.33 Obstructive sleep apnea (adult) (pediatric); I25.2 Old myocardial infarction; Z20.822 Contact with and (suspected) exposure to COVID-19; Z79.82 Long term (current) use of aspirin; Z79.84 Long term (current) use of oral hypoglycemic drugs; Z91.19 Patient's noncompliance with other medical treatment and regimen; Z87.891 Personal history of nicotine dependence; Z95.1 Presence of aortocoronary bypass graft; Z79.899 Other long term (current) drug therapy
CPT/HCPCS: 36415; 71046; 71275; 80048; 80053; 83036; 83735; 84484; 85025; 85610; 85730; 87635; 93005; 93306; 93308; 93459; 94660; 96361; 96374; 99285

== ENCOUNTER → 2021-10-16 | Outpatient (CLI) | payer BC, OTHER ==
[2021-10-16 09:36] VITALS: BP 138/80; PULSE 73; RESP 18; TEMP 98
--- NOTE | 2021-10-16 09:56 | P.CON ---
Consult Note - . Consult date: 10/16/21 Assessment/Plan:: HISTORY OF PRESENT ILLNESS: 46 yr old male as a referral from Dr Duran presents today with lumbar pain due to mild spinal stenosis, disc bulges, bilateral neuroformainal stenoses and L3, L4 nerve root abutment presents today for an evaluation. Patient states he has 3 out of 10 in intensity, stabbing in character, lower back pain with radiation up the spine to his thoracic spine and down the lower extremities bilaterally when he walks, stands or sits. Patient says he hunches forward while standing or sitting for pain relief. Pain is relieved with medications, topicals, heat, chiropractic treatments 1 year ago, home stretching regimen, massage and heating pad, hunching forward, repositioning and rest. Past Medical History: Coronary Artery Disease (CAD), MT (2008, 2010, 2012, 2014), Chest Pain / Angina/ Pericarditis (October,), COPD, GERD/Reflux, Hyperlipidemia, Hypertension, Fatty Liver Disease, Myocardial Infarction (MT), Pneumonia, Eczema, Sleep Apnea/CPAP/BIPAP, Vascular Disorder Past Surgical History: Coronary Bypass/CABG, Heart Catheterization, Orthopedic Surgery, BL inguinal hernia repair as an infant, Triple Bypass in 2010, Cerebral Aneurysm repair at age 21, R RCT dislocation with repair Social History: Former Tobacco user. No ETOH abuse. No illicit drug adelaide. Family History: Father- Asthma, COPD, Myocardial Infarction (MT). Mother- Asthma, Cancer, COPD, Hyperlipidemia, Hypertension All: NKDA Meds: See list REVIEW OF ORGAN SYSTEMS: CONSTITUTIONAL: No fevers or chills. No recent weight loss. HEENT: No visual acuity loss, eye pain, difficulties with hearing. No nosebleeds. No difficulty swallowing. RESPIRATORY: Denies any troubles with breathing or dyspnea on exertion. CARDIOVASCULAR: Denies any chest pain, palpitations, or recent heart attacks. GASTROINTESTINAL: Denies fatty food intolerance. Has change in bowel habits and gas bloat. GENITOURINARY: Denies any blood in urine. Has increased urinary frequency. NEUROLOGICAL: + numbness and tingling along the distal extremities. No seizure disorders or headaches. MUSCULOSKELETAL: + back pain SKIN: No skin cancer. No rash. PSYCHIATRIC: Denies current depression or suicidal thoughts. ENDOCRINE: Denies current thyroid disorders. Denies any blood sugar glucose intolerance. HEME/LYMPHATIC: Denies any lumps and bumps around the neck. History of deep venous thrombosis. ALLERGY/IMMUNOLOGY: No immunoglobulin therapy. No immune deficiencies. BREAST: Denies current breast lumps, pain or nipple discharge. Physical Examinations : Constitutional : Cooperative , not in acute distress . HEENT: Neck supple. No Lymphadenopathy. Normal thyroid size . Eyes no ptosis , no icterus, no photophobia . Hearing intact. Normal oropharynx. No Thrush. Respiratory : Chest clear to auscultations bilaterally. No wheezing. No rhonchi. Cardiovascular : Regular rate and rhythm , S1 / S2. No S3 . No S4. Gastrointestinal : Abdomen soft. No tenderness. Bowel sounds x 4. No organomegaly . Genitourinary : Deferred. Neurologic : Cranial nerve II to XII intact. No focal neurological deficits. Psychiatric : alert & oriented x 3. Matching mood & appropriate affect. Judgment & insight intact. Lymphatic No Lymphadenopathy. Musculoskeletal : Cervical Spine Motor strength in the deltoid and biceps: Normal right side. Normal Left side Motor strength biceps and the wrist extensors: Normal right side . Normal left side Motor strength in the triceps muscle: Normal right side. Normal left side Deep tendon reflexes: Normal at the biceps. Normal at Brachioradialis. Normal at triceps Cervical facet loading test: positive bilaterally Spurling test: positive bilaterally Neck distraction test: positive bilaterally Mark sign: positive bilaterally Lumbar spine Motor strength lower extremities ,thigh and legs 5/5 Right side , 5/5 Left side Deep tendon reflexes : Normal Knee Jerk. Normal Ankle Jerk Vertebral body tenderness over L4 Lumbar facet Loading Test: positive Right / positive Left Range of motion: Flexion 45 degrees, Extension 0 degrees Straight Leg Raise test: Left/ Right positive at 30 degrees Alva test: positive right / positive left. Severe tenderness over the Sacroiliac joint on the Right / Left sides Gaenslen test: positive bilaterally Seated flexion test: positive bilaterally. Imaging: CT Lumbar spine without contrast from 10/11/2020 reviewed. MRI Lumbar spine without contrast from 09/23/2020 reviewed. Assessment/ Plan : Recommendation of SAM L3-L4 #1. Will consider a series of facet blocks of the medial branches if pt does not experience sufficient pain relief. Risks, benefits of procedure discussed and patient verbalized understanding. Admits to ASA 81 mg daily use. Admits to Diabetes Mellitus with Januvia use. Protocol prior to procedure discussed. All questions answered. I have spent greater than 50 minutes on patient care today. Dr López was available by phone for the evaluation of this patient. The time was used to review the medical records including relevant urine studies and Prescription history (MAPs), review of the available imaging, evaluation and examination of the patient, coordination of care with the medical staff and if applicable referring physicians, as well as creation of the medical record PQRS Measure Charge Sheet Mode of Arrival: Ambulatory - Pain Location Lower Back Non-Pharmacological Interventions: Chiropractic Treatment, Heat, Home Exercise, Inactivity, Massage, Position/Reposition, Stretching PQRS Narrative: Smoking Status Current every day smoker Blood Pressure 138/80 Pain Intensity [Lower Back] 3 Scale Used Numeric (1 - 10) Hx Alcohol Use (MH) No Home Medications: Ambulatory Orders Atorvastatin [Lipitor] 40 mg PO DAILY 10/13/14 Aspirin 81 mg PO DAILY 02/20/20 Losartan Potassium 100 mg PO DAILY 02/20/20 Metoprolol Succinate (ER) [Toprol XL] 50 mg PO HS 02/20/20 hydroCHLOROthiazide 25 mg PO DAILY 02/20/20 Omeprazole 40 mg PO DAILY 07/06/20 Cholecalciferol (Vitamin D3) [Vitamin D3 (125 MCG = 5,000 IU)] 125 mcg PO DAILY 03/28/21 Multivitamins, Thera [Multivitamin (formulary)] 1 tab PO DAILY 03/28/21 sitaGLIPtin PHOSPHATE [Januvia] 100 mg PO DAILY 03/28/21 Isosorbide Mononitrate ER [Imdur] 30 mg PO DAILY #30 tab.er.24h 04/02/21 Nitroglycerin Sl Tabs [Nitrostat] 0.4 mg SUBLINGUAL Q5M PRN #3 tab 04/02/21 Ticagrelor [Brilinta] 90 mg PO BID #60 tab 04/02/21
== END ==
LOC: PNWHC3 09:02
PROVIDERS: ATTEND Physician Assistant Medical
DX: M48.061 Spinal stenosis, lumbar region without neurogenic claudication (principal); M51.26 Other intervertebral disc displacement, lumbar region; I25.10 Atherosclerotic heart disease of native coronary artery without angina pectoris; I25.2 Old myocardial infarction; J44.9 Chronic obstructive pulmonary disease, unspecified; E78.5 Hyperlipidemia, unspecified; I10 Essential (primary) hypertension; F17.200 Nicotine dependence, unspecified, uncomplicated; K21.9 Gastro-esophageal reflux disease without esophagitis; E11.9 Type 2 diabetes mellitus without complications; Z79.84 Long term (current) use of oral hypoglycemic drugs; Z79.82 Long term (current) use of aspirin
CPT/HCPCS: 99211

== ENCOUNTER → 2022-01-29 | Outpatient (CLI) | payer OTHER ==
[2022-01-29 09:20] VITALS: BP 120/83; PULSE 60; RESP 18; TEMP 98
--- NOTE | 2022-02-01 15:28 | P.PAINPG ---
PQRS Measure Charge Sheet Comment: A 47 yr old male with a history of severe and chronic low back pain secondary to lumbar degenerative disc diseases and lumbar spondylosis with facet arthropathy presents today for evaluation of LBP w radiation of pain towards the BL hips. Pain level is currently at 6/10 in intensity, constant, dull & achy in the lower aspects of his lumbar spine with radiation of stabbing & throbbing pain when standing/walking for periods of 30 min or more. Pain is alleviated with medications (Tylenol, Motrin, Gilbert Conway patches), completed 6 weeks of PT sessions, chiropractic treatments semi monthly, heat, palliated with bending forward, repositioning and rest. Patient is currently on Tylenol OTC, Motrin OTC, Gilbert Conway patches Patient denies any side effects of the medication(s), denies excessive drowsiness or sleepiness, denies suicidal ideation and reports that the current pain medication is helping to control the pain and improve activities of daily living. Patient denies any motor or sensory deficits. Patient denies any fever or night sweats, denies any change in the bowel movements or urination. Physical Examination: -Constitutional: Cooperative. Not in acute distress . - Neurologic: Cranial nerve II to XII intact. No focal neurological deficits. - Psychatric: Alert & oriented x 3. Matching mood & appropriate affect. Judgment and insight intact. - Musculoskeletal: Cervical spine: Muscle bulk/ tone/ strength in the bilateral upper extremities normal Vertebral body tenderness to palpation over Spurling test positive Distraction test positive Facet loading test positive Thoracic spine Muscle bulk / tone/ strength in the bilateral paraspinal muscles normal Vertebral body tender to palpation over Facet loading test positive Lumbar spine: Motor bulk/ tone/ strength lower extremities , thigh and legs : 5/5 Deep tendon reflexes : Normal Knee Jerk. Normal Ankle Jerk . Vertebral body tenderness to palpation over Lumbar Facet Loading Test positive L3, L4 Straight Leg Raise: positive at 30 degrees right side/ left side Gaenslen's Test positive Sacral spine : Severe tenderness over the Sacroiliac joint: right side / left side Range of motion: Flexion of the lumbar spine <60 degrees Range of motion: Extension of the lumbar spine <20 degrees Gaenslen's Test positive Masoud's Test positive Alva test: positive right side / left side Thigh Thrust Test Sacral Thrust Test Assessment and plan: Chronic low back pain secondary to lumbar degenerative disc disease , lumbar spondylosis with facet arthropathy without myelopathy Recommendation of LESI L3-L4. May need a s eries of injections, up to 3 within a 6 mo period, for optimal pain relief. Risks, benefits of procedure discussed and pt verbalized understanding. Admits to anticoagulant use or medical history of diabetes. Protocol for discontinuation/ continuation of medications renata procedure discussed. All patient questions answered MAPS reviewed and it was appropriate. I have spent less than 30 minutes on patient care today. Dr López was available by phone for the evaluation of this patient. The time was used to review the medical records including relevant urine studies and Prescription history (MAPs), review of the available imaging, evaluation and examination of the patient, coordination of care with the medical staff and if applicable referring physicians, as well as creation of the medical record - Pain Location Bilateral Lower Back Non-Pharmacological Interventions: Chiropractic Treatment, Heat Pharmacological Interventions: PRN Medication, Topical Medication PQRS Narrative: Smoking Status Current every day smoker Hx Alcohol Use (MH) No Home Medications: Ambulatory Orders Atorvastatin [Lipitor] 40 mg PO DAILY 10/13/14 Aspirin 81 mg PO DAILY 02/20/20 Losartan Potassium 100 mg PO DAILY 02/20/20 Metoprolol Succinate (ER) [Toprol XL] 50 mg PO HS 02/20/20 hydroCHLOROthiazide 25 mg PO DAILY 02/20/20 Omeprazole 40 mg PO DAILY 07/06/20 Cholecalciferol (Vitamin D3) [Vitamin D3 (125 MCG = 5,000 IU)] 125 mcg PO DAILY 03/28/21 Multivitamins, Thera [Multivitamin (formulary)] 1 tab PO DAILY 03/28/21 sitaGLIPtin PHOSPHATE [Januvia] 100 mg PO DAILY 03/28/21 Isosorbide Mononitrate ER [Imdur] 30 mg PO DAILY #30 tab.er.24h 04/02/21 Nitroglycerin Sl Tabs [Nitrostat] 0.4 mg SUBLINGUAL Q5M PRN #3 tab 04/02/21 Ticagrelor [Brilinta] 90 mg PO BID #60 tab 04/02/21 Controlled Substance Measures - Controlled Substance Measures Is patient prescribed a controlled substance at discharge?: No
== END ==
LOC: PNWHC3 08:52
PROVIDERS: ATTEND Specialist
DX: M47.816 Spondylosis without myelopathy or radiculopathy, lumbar region (principal); M51.36 Other intervertebral disc degeneration, lumbar region; G89.29 Other chronic pain; F17.200 Nicotine dependence, unspecified, uncomplicated
CPT/HCPCS: 99211

== ENCOUNTER 2022-03-08 07:07 | Day surgery (SDC) | payer OTHER ==
[2022-03-06 15:05] VITALS: BMI 50.8
[~2022-03-08 07:07] MED LIST changes: -LIDOCAINE 1% (10MG/ML) FOR IV START INTRADERMA PRN
[2022-03-08 07:24] VITALS: TEMP 97.1
[2022-03-08] MEDS ORDERED: IOPAMIDOL M200 10 ML VIAL ONE (07:42)
[2022-03-08] MEDS ORDERED: methylPREDNISolone ACETATE 40 MG/ML 1 ML VIAL ONE (07:42)
[2022-03-08] MEDS ORDERED: MIDAZOLAM 2 MG/2 ML VIAL ONE (07:42)
[2022-03-08] MEDS ORDERED: fentaNYL (PF) 50 MCG/ML 2 ML AMP ONE (07:42)
[2022-03-08 07:48] LABS: Glucose,Whole Blood 91 mg/dL (70-110)
--- NOTE | 2022-03-08 07:55 | P.PCN ---
Date of Procedure: 03/08/22 Procedure(s) Performed: Lumbar epidural steroid injection Description of Procedure: PREOPERATIVE DIAGNOSIS: lumbar radiculopathy POSTOPERATIVE DIAGNOSIS: Lumbar radiculopathy PROCEDURE 1. Lumbar epidural steroid injection under fluoroscopic guidance at the L3-L4 level. 2. Lumbar epidurogram. Imaging: Fluoroscopy was used, images where saved to the medical record ANESTHESIA: Medication Administered by: Nurse Sedation Type: Moderate sedation Sedation Supervision start time: [id number] Sedation Supervision end time: 0755 EBL: Minimal PROCEDURE INDICATION: The patient with low back pain and radiculitis symptoms unresponsive to conservative treatment. Fluoroscopy was used to optimize visualization of the needle placement and to maximize safety. PROCEDURE DESCRIPTION / TECHNIQUE: The patient was seen and identified in the preoperative area. Risks, benefits, complications including but not limited to infections ,bleeding ,allergic reaction to the medications, nerve damage and incomplete pain relief , as well as alternatives to the procedure were discussed with the patient. The patient agreed to proceed with the procedure and signed the consent. IV was started, and vital signs were stable. Patient was taken to the OR and time out was completed. The patient was placed in the prone position on procedure table and a pillow was placed under the abdomen to reduce lumbar lordosis. The lumbosacral area was prepped and draped in the usual sterile fashion. Vitals were closely monitored during the procedure. Using anterior-posterior fluoroscopy, the L3-L4 interlaminar space was identified and the skin over this site was marked and then infiltrated with 1% lidocaine subcutaneously. Subsequently, a 20-gauge Tuohy epidural needle was inserted and advanced toward the epidural space using the Loss of resistance technique and guided by AP and lateral fluoroscopy. The correct needle position in the epidural space was verified with the injection of 1 mL of Omnipaque 180 contrast to observe an acceptable epidurogram, after negative aspiration for blood and CSF and in the absence of paresthesias. Again after negative aspiration, a 3 ml mixture containing 40mg of depomedrol and 2 ml of preservative free Normal Saline was injected and a washout of epidurogram was seen. Needle was withdrawn intact, skin was cleansed, and bandages were applied. COMPLICATIONS: None DISPOSITION / PLANS: The patient was placed in a supine position and transferred to the recovery area in a stable condition for observation. There was no evidence of lower extremity motor or sensory deficit after the procedure. Patient was discharged from the recovery room after meeting discharge criteria. Home discharge instructions were given to the patient by the staff. The patient was reexamined prior to discharge. The patient will follow up as directed.
[2022-03-08] MEDS ORDERED: IV FLUID CONTINUATION 1,000 ML IV ONE (07:58)
[2022-03-08 08:03] VITALS: RESP 18
[2022-03-08 08:14] VITALS: BP 106/58; PULSE 80
--- NOTE | 2022-03-08 08:17 | FL ---
EXAMINATION TYPE: FL guided pain mgmt statistic DATE OF EXAM: 03/08/2022 FLUOROSCOPY Fluoroscopy time of 4 seconds was used during M5 4.16, lumbar epidural steroid injection. 2 image/s document/s the procedure.
== END 2022-03-08 08:35 | disposition home or self-care (01) ==
LOC: ORPAIN 07:07
PROVIDERS: ATTEND Hospitalist
DX: M54.16 Radiculopathy, lumbar region (principal); Z79.82 Long term (current) use of aspirin; Z79.899 Other long term (current) drug therapy; Z79.84 Long term (current) use of oral hypoglycemic drugs; F17.210 Nicotine dependence, cigarettes, uncomplicated; Z82.5 Family history of asthma and other chronic lower respiratory diseases; Z83.6 Family history of other diseases of the respiratory system; Z82.49 Family history of ischemic heart disease and other diseases of the circulatory system
CPT/HCPCS: 62323; J2250; J1030; J3010; Q9966

== ENCOUNTER → 2022-04-02 | Outpatient (CLI) | payer OTHER ==
[2022-04-02 10:44] VITALS: BP 140/81; PULSE 52; RESP 18; TEMP 98
--- NOTE | 2022-04-02 12:37 | P.PAINPG ---
PQRS Measure Charge Sheet Comment: A 47 yr old male with a history of severe and chronic low back pain secondary to lumbar degenerative disc diseases and lumbar spondylosis with facet arthropathy presents today for evaluation s/p LAUREN L3-L4. Pt states he experienced 20% pain relief s/p procedure. Pain level is currently at 3/10 in intensity, constant, localized in lower lumbar spine, achy/ sharp in character w shooting towards the R hip. Pain escalates as high as 7/10 in intensity when provoked by walking/standing x 30 minutes and sitting for periods of 45 min or more. Pain is alleviated with PT x 6 wks in January 2022, chiropractic treatments monthly, heat, repositioning and rest. Interventional pain procedures completed include LAUREN L3-L4 Patient is currently on Tyl, Ibu, Excedrin, Biofreeze Patient denies any side effects of the medication(s), denies excessive drowsiness or sleepiness, denies suicidal ideation and reports that the current pain medication is helping to control the pain and improve activities of daily living. Patient denies any motor or sensory deficits. Patient denies any fever or night sweats, denies any change in the bowel movements or urination. Physical Examination: -Constitutional: Cooperative. Not in acute distress . - Neurologic: Cranial nerve II to XII intact. No focal neurological deficits. - Psychatric: Alert & oriented x 3. Matching mood & appropriate affect. Judgment and insight intact. - Musculoskeletal: Cervical spine: Muscle bulk/ tone/ strength in the bilateral upper extremities normal Vertebral body tenderness to palpation over Spurling test positive Distraction test positive Facet loading test positive Thoracic spine Muscle bulk / tone/ strength in the bilateral paraspinal muscles normal Vertebral body tender to palpation over Facet loading test positive Lumbar spine: Motor bulk/ tone/ strength lower extremities , thigh and legs : 5/5 Deep tendon reflexes : Normal Knee Jerk. Normal Ankle Jerk . Vertebral body tenderness to palpation over Lumbar Facet Loading Test positive over BL L3-L5 w jump reflex upon palpation Straight Leg Raise: positive at 30 degrees right side/ left side Gaenslen's Test positive Sacral spine : Severe tenderness over the Sacroiliac joint: right side / left side Range of motion: Flexion of the lumbar spine <60 degrees Range of motion: Extension of the lumbar spine <20 degrees Gaenslen's Test positive Masoud's Test positive Alva test: positive right side / left side Thigh Thrust Test Sacral Thrust Test Assessment and plan: Chronic low back pain secondary to lumbar degenerative disc disease , lumbar spondylosis with facet arthropathy without myelopathy Recommendation of BL facet block of the medial branches L4-L5, L5-S1 #1. May need a series of injections, up until RFA, for optimal pain relief. Risks, benefits of procedure discussed and pt verbalized understanding. Admits to anticoagulant use or medical history of diabetes. Protocol for discontinuation/ continuation of medications renata procedure discussed. All patient questions answered MAPS reviewed and it was appropriate. I have spent less than 30 minutes on patient care today. Dr López was available by phone for the evaluation of this patient. The time was used to review the medical records including relevant urine studies and Prescription history (MAPs), review of the available imaging, evaluation and examination of the patient, coordination of care with the medical staff and if applicable referring physicians, as well as creation of the medical record PQRS Narrative: Smoking Status Current every day smoker Hx Alcohol Use (MH) No Home Medications: Ambulatory Orders Atorvastatin [Lipitor] 40 mg PO DAILY 10/13/14 Aspirin 81 mg PO DAILY 02/20/20 Losartan Potassium 100 mg PO DAILY 02/20/20 Metoprolol Succinate (ER) [Toprol XL] 50 mg PO DAILY 02/20/20 hydroCHLOROthiazide 25 mg PO DAILY 02/20/20 Omeprazole 40 mg PO BID 07/06/20 Cholecalciferol (Vitamin D3) [Vitamin D3 (125 MCG = 5,000 IU)] 125 mcg PO DAILY 03/28/21 Isosorbide Mononitrate ER [Imdur] 30 mg PO DAILY #30 tab.er.24h 04/02/21 Nitroglycerin Sl Tabs [Nitrostat] 0.4 mg SUBLINGUAL Q5M PRN #3 tab 04/02/21 Empagliflozin/Linagliptin [Glyxambi 25 mg-5 mg Tablet] 1 each PO DAILY 03/06/22 Liraglutide [Victoza 3-Thierry] 1.8 mg SQ DAILY 03/06/22 Controlled Substance Measures - Controlled Substance Measures Is patient prescribed a controlled substance at discharge?: No
== END ==
LOC: PNWHC3 08:41
PROVIDERS: ATTEND Specialist
DX: M47.816 Spondylosis without myelopathy or radiculopathy, lumbar region (principal); M51.36 Other intervertebral disc degeneration, lumbar region; G89.29 Other chronic pain; F17.200 Nicotine dependence, unspecified, uncomplicated
CPT/HCPCS: 99211

== ENCOUNTER 2022-05-11 06:44 | Day surgery (SDC) | payer OTHER ==
[2022-05-09 16:24] VITALS: BMI 48.1
[~2022-05-11 06:44] MED LIST changes: +LIDOCAINE 1% (10MG/ML) FOR IV START INTRADERMA PRN
[2022-05-11] MEDS ORDERED: LACTATED RINGERS 1,000 ML IV SCH (07:00)
[2022-05-11 07:07] VITALS: TEMP 96.5
[2022-05-11] MEDS ORDERED: LIDOCAINE 1% (10MG/ML) FOR IV START INTRADERMA ONE (07:17)
[2022-05-11 07:23] LABS: Glucose,Whole Blood 112 mg/dL (70-110)
[2022-05-11] MEDS ORDERED: MIDAZOLAM 2 MG/2 ML VIAL ONE (07:26)
[2022-05-11] MEDS ORDERED: ROPIVACAINE 5 MG/ML 20 ML AMPULE ONE (07:26)
[2022-05-11] MEDS ORDERED: fentaNYL (PF) 50 MCG/ML 2 ML AMP ONE (07:26)
[2022-05-11] MEDS ORDERED: TRIAMCINOLONE ACETONIDE 40 MG/ML 1 ML VIAL ONE (07:26)
--- NOTE | 2022-05-11 07:45 | P.PCN ---
Date of Procedure: 05/11/22 Description of Procedure: Pre- and Post-operative Diagnosis: Lumbar facet arthropathy, and lumbar spon dylosis without myelopathy. Procedure: #1 Diagnostic Medial Branch Block at bilateral Lumbar 4/5 and #1 diagnostic dorsal ramus block at Lumbar 5/ sacral ala levels (total 4 levels) Surgeon: Joseph Heredia Anesthesia: Local: 1% Lidocaine, IV sedation : Versed 2 MG and fentanyl. 100 g Complications: None EBL: None Specimen removed: None Fluoroscopic image: Saved to patient electronic medical records. Indications for Procedure: The patient is well known to pain clinic for his chronic low back pain management. The lumbar facet loading test was positive with a clinical diagnosis of lumbar facet arthropathy. Failed with conservative therapy. Came here for interventional help for better pain relief. Procedure and Findings: The patient was seen and examined. The written informed consent was obtained after explaining the risks, benefits and alternatives of the procedure to the patient. The patient was brought to the procedure room and was placed in the prone position on the operating table table. A pillow was placed under the abdomen to reduce lumbar lordosis. Standard anesthesia monitoring was done through out the procedure. The skin preparation was done with ChloraPrep, and draping was done in usual sterile fashion. Sterile technique was observed throughout the procedure. Under fluoroscopic guidance, right the Lumbar 4, 5 and Sacral ala levels were identified in the AP view. For lumbar L4, and L5 levels the targeting area of superior articular process, and close to the most medial and superior aspect of transverse process identified, marked. 1ml of 1% Lidocaine was used with a 25 gauge needle to achieve adequate local anesthesia of the skin and subcutaneous tissue at each level. A 22 gauge 5 inch spinal needle was placed and advanced targeting area which was close to the most medial and superior aspect of the transverse process. For Lumbar 5/ sacral ala level, fluoroscope was used in the anteroposterior view, and the needle tip was placed at the superior and most medial part of sacral ala close to the superior articular process. A bony contact was obtained and needle tip position was confirmed at anteroposterior view. No paresthesia was noted. A negative aspiration was confirmed. 1 ml solution per level was injected, the block solution containing 5 ml of 0.5% ropivacaine preservative-free solution mixed with 40 MG of Kenalog. The needles were removed intact. Entire procedure repeated on the left side. Lumbar area was cleaned and bandages were applied. Disposition : The patient tolerated the procedure very well. The patient was transferred to the recovery room and remained stable until discharged home. The patient was given detailed discharge instructions for infection, bleeding, and increased pain at the injection site, and was advised to seek immediate medical attention should significant side effects develop. The patient will be scheduled with Pain Clinic within 4 weeks for repeat procedure if it's helpful.
[2022-05-11] MEDS ORDERED: IV FLUID CONTINUATION 1,000 ML IV ONE ×2 (07:47)
[2022-05-11 07:54] VITALS: RESP 16
[2022-05-11 08:04] VITALS: BP 96/66; PULSE 61
--- NOTE | 2022-05-11 09:37 | FL ---
Fluoroscopy INDICATION: Pain FINDINGS: Fluoroscopy time: 6 seconds. Images obtained: 4. IMPRESSIONS: 1. Documentation of fluoroscopy.
== END 2022-05-11 08:36 | disposition home or self-care (01) ==
LOC: ORPAIN 06:44
DX: M47.816 Spondylosis without myelopathy or radiculopathy, lumbar region (principal); I10 Essential (primary) hypertension; E78.00 Pure hypercholesterolemia, unspecified; I25.10 Atherosclerotic heart disease of native coronary artery without angina pectoris; E11.9 Type 2 diabetes mellitus without complications; K21.9 Gastro-esophageal reflux disease without esophagitis; Z79.899 Other long term (current) drug therapy
CPT/HCPCS: 64493; 64494 ×2; J2250; J3301; J3010; J2795

== ENCOUNTER → 2022-05-31 | Outpatient (CLI) | payer OTHER ==
[2022-05-31 09:39] VITALS: BP 107/68; PULSE 75; RESP 18; TEMP 98
--- NOTE | 2022-06-04 07:46 | P.PAINPG ---
PQRS Measure Charge Sheet Comment: A 47 yr old male with a history of severe and chronic low back pain secondary to lumbar degenerative disc diseases and lumbar spondylosis with facet arthropathy without myelopathy presents today for evaluation s/p BL MBB L3-L5 #1. Pt states he experienced 95% pain relief x 1 wk s/p procedure. Pain level is currently at 4/10 in intensity, constant, localized in the lower lumbar spine, stabbing in character w shooting towards the BLEs. Pain is provoked as high as 10/10 by standing/ walking for periods of 15 min or more. Pain is alleviated with PT x 6 wks in Sep 2021, chiropractic treatments weekly x 20 wks in 2021, heat, meds (Mobic), topicals, forward leaning, repositioning and rest. Interventional pain procedures completed include BL MBB L3-L5 x1 Patient is currently on Mobic, Lidocaine topical Patient denies any side effects of the medication(s), denies excessive drowsiness or sleepiness, denies suicidal ideation and reports that the current pain medication is helping to control the pain and improve activities of daily living. Patient denies any motor or sensory deficits. Patient denies any fever or night sweats, denies any change in the bowel movements or urination. Physical Examination: -Constitutional: Cooperative. Not in acute distress . - Neurologic: Cranial nerve II to XII intact. No focal neurological deficits. - Psychatric: Alert & oriented x 3. Matching mood & appropriate affect. Judgment and insight intact. - Musculoskeletal: Cervical spine: Muscle bulk/ tone/ strength in the bilateral upper extremities normal Vertebral body tenderness to palpation over Spurling test positive Distraction test positive Facet loading test positive Thoracic spine Muscle bulk / tone/ strength in the bilateral paraspinal muscles normal Vertebral body tender to palpation over Facet loading test positive Lumbar spine: Motor bulk/ tone/ strength lower extremities , thigh and legs : 5/5 Deep tendon reflexes : Normal Knee Jerk. Normal Ankle Jerk . Vertebral body tenderness to palpation over Lumbar Facet Loading Test positive w lateral flexion. +Jump reflex over BL L4-L5, L5-S1 Straight Leg Raise: positive at 30 degrees right side/ left side Gaenslen's Test positive Sacral spine : Severe tenderness over the Sacroiliac joint: right side / left side Range of motion: Flexion of the lumbar spine <60 degrees Range of motion: Extension of the lumbar spine <20 degrees Gaenslen's Test positive Masoud's Test positive Alva test: positive right side / left side Thigh Thrust Test Sacral Thrust Test Assessment and plan: Chronic low back pain secondary to lumbar degenerative disc disease , lumbar spondylosis with facet arthropathy without myelopathy Recommendation of BL MBB L4-L5, L5-S1 #2. May need a series of injections, up until RFA, for optimal pain relief. Risks, benefits of procedure discussed and pt verbalized understanding. Admits to anticoagulant use or medical history of diabetes. Protocol for discontinuation/ continuation of medications renata procedure discussed. All patient questions answered I have spent less than 30 minutes on patient care today. Dr López was available by phone for the evaluation of this patient. The time was used to review the medical records including relevant urine studies and Prescription history (MAPs), review of the available imaging, evaluation and examination of the patient, coordination of care with the medical staff and if applicable referring physicians, as well as creation of the medical record PQRS Narrative: Smoking Status Current every day smoker Hx Alcohol Use (MH) No Home Medications: Ambulatory Orders Atorvastatin [Lipitor] 40 mg PO DAILY 10/13/14 Aspirin 81 mg PO DAILY 02/20/20 Losartan Potassium 100 mg PO DAILY 02/20/20 Metoprolol Succinate (ER) [Toprol XL] 50 mg PO DAILY 02/20/20 hydroCHLOROthiazide 25 mg PO DAILY 02/20/20 Omeprazole 40 mg PO BID 07/06/20 Cholecalciferol (Vitamin D3) [Vitamin D3 (125 MCG = 5,000 IU)] 125 mcg PO DAILY 03/28/21 Isosorbide Mononitrate ER [Imdur] 30 mg PO DAILY #30 tab.er.24h 04/02/21 Nitroglycerin Sl Tabs [Nitrostat] 0.4 mg SUBLINGUAL Q5M PRN #3 tab 04/02/21 Empagliflozin/Linagliptin [Glyxambi 25 mg-5 mg Tablet] 1 each PO DAILY 03/06/22 Liraglutide [Victoza 3-Thierry] 1.8 mg SQ DAILY 03/06/22 Furosemide [Lasix] 40 mg PO DAILY 05/09/22 Controlled Substance Measures - Controlled Substance Measures Is patient prescribed a controlled substance at discharge?: No
== END | disposition home or self-care (01) ==
LOC: PNWHC3 08:33
PROVIDERS: ATTEND Specialist
DX: M47.816 Spondylosis without myelopathy or radiculopathy, lumbar region (principal); M51.36 Other intervertebral disc degeneration, lumbar region; G89.29 Other chronic pain; Z79.01 Long term (current) use of anticoagulants; E11.9 Type 2 diabetes mellitus without complications; Z79.84 Long term (current) use of oral hypoglycemic drugs; F17.200 Nicotine dependence, unspecified, uncomplicated
CPT/HCPCS: 99211

== ENCOUNTER 2022-07-13 07:20 | Day surgery (SDC) | payer OTHER ==
[2022-07-12 08:40] VITALS: BMI 45.8
[2022-07-13 08:02] VITALS: RESP 16; TEMP 98.1
[2022-07-13 08:19] LABS: Glucose,Whole Blood 93 mg/dL (70-110)
[2022-07-13] MEDS ORDERED: LACTATED RINGERS 1,000 ML IV ONE (08:20)
[2022-07-13] MEDS ORDERED: MIDAZOLAM 2 MG/2 ML VIAL ONE (08:49)
[2022-07-13] MEDS ORDERED: fentaNYL (PF) 50 MCG/ML 2 ML AMP ONE (08:49)
--- NOTE | 2022-07-13 09:10 | P.PCN ---
Date of Procedure: 07/13/22 Description of Procedure: Pre- and Post-operative Diagnosis: Lumbar facet arthropathy, and lumbar spondylosis without myelopathy. Procedure: #2 Diagnostic Medial Branch Block at bilateral Lumbar 4/5 and #2 diagnostic dorsal ramus block at Lumbar 5/ sacral ala levels (total 4 levels) Surgeon: Joseph Heredia Anesthesia: Local: 1% Lidocaine, IV sedation : Versed 4 mg and fentanyl 100 g. Complications: None EBL: None Specimen removed: None Fluoroscopic image: Saved to patient electronic medical records. Indications for Procedure: The patient is well known to pain clinic for his chronic low back pain management. The lumbar facet loading test was positive with a clinical diagnosis of lumbar facet arthropathy. Failed with conservative therapy. Patient had a great pain relief with the previous lumbar medial branch block. Came here for interventional help for better pain relief. Procedure and Findings: The patient was seen and examined. The written informed consent was obtained after explaining the risks, benefits and alternatives of the procedure to the patient. The patient was brought to the procedure room and was placed in the prone position on the operating table table. A pillow was placed under the abdomen to reduce lumbar lordosis. Standard anesthesia monitoring was done through out the procedure. The skin preparation was done with ChloraPrep X1, and draping was done in usual sterile fashion. Sterile technique was observed throughout the procedure. Under fluoroscopic guidance, right-sided the Lumbar 4, 5 and Sacral ala levels were identified in the AP view. For lumbar L4, and L5 levels the targeting area of superior articular process, and close to the most medial and superior aspect of transverse process identified, marked. 1ml of 1% Lidocaine was used with a 25 gauge needle to achieve adequate local anesthesia of the skin and subcutaneous tissue at each level. A 22 gauge 5 inch spinal needle was placed and advanced targeting area which was close to the most medial and superior aspect of the transverse process. For Lumbar 5/ sacral ala level, fluoroscope was used in the anteroposterior view, and the needle tip was placed at the superior and most medial part of sacral ala close to the superior articular process. A bony contact was obtained and needle tip position was confirmed at anteroposterior view. No paresthesia was noted. A negative aspiration was confirmed. 1 ml solution per level was injected, the block solution containing 5 ml of 0.5% ropivacaine preservative-free solution mixed with 40 MG of Kenalog. The needles were removed intact. Entire procedure repeated on the left side. Lumbar area was cleaned and bandages were applied. Disposition : The patient tolerated the procedure very well. The patient was transferred to the recovery room and remained stable until discharged home. The patient was given detailed discharge instructions for infecti a on, bleeding, and increased pain at the injection site, and was advised to seek immediate medical attention should significant side effects develop. The patient will be scheduled with Pain Clinic within 4 weeks for lumbar radiofrequency ablation if it's helpfu
[2022-07-13] MEDS ORDERED: IV FLUID CONTINUATION 1,000 ML IV ONE (09:14)
[2022-07-13] MEDS ORDERED: LACTATED RINGERS 1,000 ML IV SCH (09:15)
--- NOTE | 2022-07-13 09:17 | FL ---
EXAMINATION TYPE: FL guided pain mgmt statistic DATE OF EXAM: 07/13/2022 CLINICAL HISTORY: Low back pain. TECHNIQUE: Fluoroscopy. COMPARISON: None. FINDINGS: Fluoroscopic guidance was provided during pain relief procedure performed by Dr. Voss. A total of 18 seconds of fluoroscopic time was utilized during the procedure and four spot images ar e acquired. Images acquired shows needle localization at several levels in the lumbar spine. IMPRESSION: As Above.
[2022-07-13 09:35] VITALS: BP 115/83; PULSE 75
[2022-07-13] MEDS ORDERED: TRIAMCINOLONE ACETONIDE 40 MG/ML 1 ML VIAL ONE (09:49)
[2022-07-13] MEDS ORDERED: ROPIVACAINE 5 MG/ML 20 ML AMPULE ONE (09:49)
== END 2022-07-13 07:44 | disposition home or self-care (01) ==
LOC: ORPAIN 07:20
DX: M47.816 Spondylosis without myelopathy or radiculopathy, lumbar region (principal); G89.29 Other chronic pain; E78.5 Hyperlipidemia, unspecified; I25.2 Old myocardial infarction; I10 Essential (primary) hypertension; I25.10 Atherosclerotic heart disease of native coronary artery without angina pectoris; J44.9 Chronic obstructive pulmonary disease, unspecified; G47.33 Obstructive sleep apnea (adult) (pediatric); F17.200 Nicotine dependence, unspecified, uncomplicated; K21.9 Gastro-esophageal reflux disease without esophagitis; E66.9 Obesity, unspecified; K75.9 Inflammatory liver disease, unspecified; G43.909 Migraine, unspecified, not intractable, without status migrainosus; Z68.34 Body mass index [BMI] 34.0-34.9, adult; Z79.899 Other long term (current) drug therapy; Z79.82 Long term (current) use of aspirin; Z79.1 Long term (current) use of non-steroidal anti-inflammatories (NSAID); Z99.89 Dependence on other enabling machines and devices; Z95.1 Presence of aortocoronary bypass graft; Z98.890 Other specified postprocedural states
CPT/HCPCS: 64493; 64494; J2250; J3301; J3010; J2795

== ENCOUNTER → 2022-08-02 | Outpatient (CLI) | payer OTHER ==
--- NOTE | 2022-08-02 09:09 | P.PAINPG ---
Subjective Progress Note Date: 08/02/22 Principal diagnosis: Lumbar back pain Mr. Jovel is a is 47 -year-old pleasant male came to the [facility] pain clinic for postprocedure evaluation after bilateral lumbar L4-L5, and L5-S1 medial branch block #2 done on 07/13/2022 . He got 20-30% pain relief for a few days , he is not sure that intervention procedure helped him or his back is sore from the intervention procedure needles. So he is unable to come to a conclusion how much pain relief he got from the procedure. But he had more than 80% pain relief with the first lumbar medial branch block intervention procedure. Patient has ongoing pain for many years. Patient describes pain is aching, throbbing, constant type of pain. Pain is radiating to right lower extremity sometimes. Patient rated pain levels are 6 out of 10 in severity. As per patient his pain get worse when he is standing, and walking prolonged period of time. His pain relieves when he is leaning forward, and sitting and bending forward helps in relieving his pain. With the help of medications pain levels are 4-10 out of 10 in severity. Activities making pain worse. Medications, resting, intervention procedures helping in relieving patient's pain. Patient pain some days better than others. Overall activities decreased secondary to pain. Because of the pain sometimes patient is feeling lack of sleep, interest, and energy. Denied any side effects with the medications. Denied any bowel or bladder problems at this time. Patient is not using any aids for walking support. Patient denies any suicidal or homicidal ideations intent or plan. Patient denies any auditory or visual hallucinations. Patient denied any red flag symptoms related to pain. He tried physical therapy, massage therapy, heating pad, he lost 80 pounds weight over 1 year period of time with the help of appetite suppressant. Objective - Vital Signs Vital signs: Intake & Output 08/01/22 08/02/22 08/02/22 18:59 06:59 18:59 Weight 154.221 kg - Exam General: Well-developed, well-nourished, no acute distress HEENT: Normocephalic, and atraumatic Neck: Supple, no neck swelling Psychiatric: Appropriate mood, and affect SYSTEMS SUPPORT ENGINEER: No focal neurological deficits Musculoskeletal: Upper extremity: Normal strength, and range of motion. Sensation grossly intact Lower extremity: Normal strength, and decreased range of motion secondary to pain Lumbar spine: Paravertebral tenderness: positive Lumbar facet load test : positive Sacroiliac joint tenderness: Negative Thigh thrust test: Negative Straight leg raising test: Positive - Constitutional Constitutional Comment(s): 13 point Assessment and Plan Assessment: Lumbar spondylosis without myelopathy Lumbar spinal stenosis Myofascial pain syndrome, and chronic pain syndrome Plan: #1 Diagnoses, prognosis, and multiple treatment options including but not limited to physical therapy, interventional therapy, adjunct medication therapy, narcotic medication, and surgical options were discussed with the patient. And all questions were answered to the patient's satisfaction. #2 treatment plan agreement : Patient was thoroughly discussed regarding the treatment options, alternatives, and importance of exercises as tolerated. Patient clearly understood. #3 Patient was counseled on importance of regular exercise. Including claudia chi, aerobic exercises as tolerated. Which helps for chronic pain, and overall well- being. Patient also counseled regarding importance of weight control rolling chronic pain, and overall other health issues. By altering diet habits, minimizing sugar intake, and processed foods helps in minimizing Inflammation. Also discussed with the patient regarding intermittent fasting. #4 investigations: MAPS- reviewed , urine drug test- none #5 diagnostic tests: None #6 consultation : Neurosurgical consultation if intervention procedures not helpful in future # 7 interventional procedures: Bilateral lumbar L4-L5, and L5-S1 medial branch block #3 . Procedure, complications, alternatives discussed with the patient. If not helpful in future plan to do L4-L5 epidural steroid injection, if those interventional procedures not helpful plan to refer him to neurosurgical consultation. #8 medications #1 Tylenol 500 mg by mouth every 8 to every 12 hours as needed, total dose not more than 2 g per day Medication side effects, complications, long-term consequences discussed with the patient. Patient recommended to contact the pain clinic if noticed any issues with given medications. #9 morphine milligrams equivalents dose ( MME) per day: 0 from the pain clinic. # 10 TENS unit's, and percussion massage device #11 disposition: scheduled to follow up with pain clinic in 4 weeks duration. Time with Patient: Less than 30 PQRS Measure Charge Sheet Measure #130: Documentation of Current Meds in Medical Chart: Patient's medications documented in chart Measure #226: Tobacco Use: Screen & Cessation Intervention: Pt not a tobacco user Measure #111: Pneumonia Vaccination: Pneumococcal vaccine NOT administered or previously given Measure #47: Advance Care Plan: Advance care planning discussed & documented, pt chose/unable to give Measure #412: Opioid Treatment Agreement: No documentation of signed opioid treatment agreement Measure #408: Opioid Therapy Follow-up Evaluation: Patient had NO f/u eval minimum every 3 months during opioid therapy Measure #317: Preventitive Care & Scrn High Bld Press & F/U: Pre-hypertensive or hypertensive BP documented, pt will f/u with PCP Measure #128: Body Mass Index (BMI) Screening & Follow-up: BMI documented ABOVE normal parameters - f/u documented Measure #131: Pain Assessment & Follow-up: Pain positive & plan documented Measure #431: Unhealthy Alcohol Use Preventative Care & Scrn: Patient not identified as an unhealthy alcohol user PQRS Narrative: Smoking Status Current every day smoker Hx Alcohol Use (MH) No Home Medications: Ambulatory Orders Atorvastatin [Lipitor] 40 mg PO DAILY 10/13/14 Aspirin 81 mg PO DAILY 02/20/20 Losartan Potassium 100 mg PO DAILY 02/20/20 Metoprolol Succinate (ER) [Toprol XL] 50 mg PO DAILY 02/20/20 hydroCHLOROthiazide 25 mg PO DAILY 02/20/20 Omeprazole 40 mg PO BID 07/06/20 Cholecalciferol (Vitamin D3) [Vitamin D3 (125 MCG = 5,000 IU)] 125 mcg PO DAILY 03/28/21 Isosorbide Mononitrate ER [Imdur] 30 mg PO DAILY #30 tab.er.24h 04/02/21 Nitroglycerin Sl Tabs [Nitrostat] 0.4 mg SUBLINGUAL Q5M PRN #3 tab 04/02/21 Empagliflozin/Linagliptin [Glyxambi 25 mg-5 mg Tablet] 1 each PO DAILY 03/06/22 Liraglutide [Victoza 3-Thierry] 1.8 mg SQ DAILY 03/06/22 Furosemide [Lasix] 40 mg PO DAILY 05/09/22 Controlled Substance Measures - Controlled Substance Measures Is patient prescribed a controlled substance at discharge?: No
[2022-08-02 09:11] VITALS: BP 143/81; PULSE 91; RESP 18; TEMP 98.6
== END ==
LOC: PNWHC3 08:31
DX: M47.816 Spondylosis without myelopathy or radiculopathy, lumbar region (principal); M48.061 Spinal stenosis, lumbar region without neurogenic claudication; G89.4 Chronic pain syndrome; M79.10 Myalgia, unspecified site; F17.200 Nicotine dependence, unspecified, uncomplicated
CPT/HCPCS: 99211

== ENCOUNTER → 2023-12-17 | Outpatient (CLI) | payer OTHER ==
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
== END | disposition home or self-care (01) ==
LOC: 3 N SLEEP 15:06
PROVIDERS: ATTEND Internal Medicine Critical Care Medicine
DX: G47.33 Obstructive sleep apnea (adult) (pediatric) (principal); G47.10 Hypersomnia, unspecified; E66.01 Morbid (severe) obesity due to excess calories; R06.83 Snoring; I25.10 Atherosclerotic heart disease of native coronary artery without angina pectoris; E11.9 Type 2 diabetes mellitus without complications; I10 Essential (primary) hypertension; E78.5 Hyperlipidemia, unspecified; K76.0 Fatty (change of) liver, not elsewhere classified; K21.9 Gastro-esophageal reflux disease without esophagitis; I73.9 Peripheral vascular disease, unspecified; J44.9 Chronic obstructive pulmonary disease, unspecified; K57.30 Diverticulosis of large intestine without perforation or abscess without bleeding; L30.9 Dermatitis, unspecified; F17.200 Nicotine dependence, unspecified, uncomplicated; I83.90 Asymptomatic varicose veins of unspecified lower extremity; Z79.899 Other long term (current) drug therapy; Z79.82 Long term (current) use of aspirin
CPT/HCPCS: 99211

== ENCOUNTER 2023-12-31 19:52 | Outpatient (CLI) | payer OTHER | END 2024-01-01 05:15 | disposition home or self-care (01) | LOC: 3 N SLEEP 19:52 | PROVIDERS: ATTEND Internal Medicine Critical Care Medicine | DX: G47.33 Obstructive sleep apnea (adult) (pediatric) (principal); G47.10 Hypersomnia, unspecified; E66.01 Morbid (severe) obesity due to excess calories; I25.10 Atherosclerotic heart disease of native coronary artery without angina pectoris; I10 Essential (primary) hypertension; E78.5 Hyperlipidemia, unspecified; K21.9 Gastro-esophageal reflux disease without esophagitis; K76.0 Fatty (change of) liver, not elsewhere classified; E11.51 Type 2 diabetes mellitus with diabetic peripheral angiopathy without gangrene; J44.9 Chronic obstructive pulmonary disease, unspecified; K57.90 Diverticulosis of intestine, part unspecified, without perforation or abscess without bleeding; I83.10 Varicose veins of unspecified lower extremity with inflammation; Z79.899 Other long term (current) drug therapy; Z79.85 Long-term (current) use of injectable non-insulin antidiabetic drugs; Z87.891 Personal history of nicotine dependence | CPT/HCPCS: 95810 ==

== ENCOUNTER 2024-01-30 19:51 | Outpatient (CLI) | payer OTHER ==
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
== END 2024-01-31 05:30 | disposition home or self-care (01) ==
LOC: 3 N SLEEP 19:51
PROVIDERS: ATTEND Internal Medicine Critical Care Medicine
DX: G47.33 Obstructive sleep apnea (adult) (pediatric) (principal); G47.36 Sleep related hypoventilation in conditions classified elsewhere; E66.01 Morbid (severe) obesity due to excess calories; I25.10 Atherosclerotic heart disease of native coronary artery without angina pectoris; E11.51 Type 2 diabetes mellitus with diabetic peripheral angiopathy without gangrene; I10 Essential (primary) hypertension; E78.5 Hyperlipidemia, unspecified; K76.0 Fatty (change of) liver, not elsewhere classified; K21.9 Gastro-esophageal reflux disease without esophagitis; J44.9 Chronic obstructive pulmonary disease, unspecified; L30.9 Dermatitis, unspecified; K57.90 Diverticulosis of intestine, part unspecified, without perforation or abscess without bleeding; I83.90 Asymptomatic varicose veins of unspecified lower extremity; Z86.79 Personal history of other diseases of the circulatory system; Z95.1 Presence of aortocoronary bypass graft; Z95.5 Presence of coronary angioplasty implant and graft; Z87.891 Personal history of nicotine dependence; Z68.43 Body mass index [BMI] 50.0-59.9, adult; Z79.85 Long-term (current) use of injectable non-insulin antidiabetic drugs; Z79.84 Long term (current) use of oral hypoglycemic drugs; Z79.899 Other long term (current) drug therapy
CPT/HCPCS: 95811

== ENCOUNTER 2024-02-27 14:42 | Emergency (ER) | payer OTHER ==
[2024-02-27 14:54] VITALS: RESP 18; TEMP 98.3
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
--- NOTE | 2024-02-27 15:55 | XR ---
EXAMINATION TYPE: XR Hip Complete LT DATE OF EXAM: 02/27/2024 3:51 PM CLINICAL INDICATION:Male, 49 years old with history of hip pain; [facility] COMPARISON: None. TECHNIQUE: XR Hip Complete LT; hip was examined in the frontal and lateral projections FINDINGS: No evidence for acute process, joint dislocation or significant soft tissue swelling. Osteo phyte formation of the superior acetabulum of the hip. There is mild joint space narrowing. This course of the arterial vasculature. IMPRESSION: 1. No evidence for acute process. 2. Mild hip osteoarthrosis.
--- NOTE | 2024-02-27 16:02 | XR ---
EXAMINATION TYPE: XR knee 4V LT DATE OF EXAM: 02/27/2024 3:58 PM CLINICAL INDICATION:Male, 49 years old with history of hip pain; [facility] COMPARISON: None. TECHNIQUE: XR knee 4V LT; examined in Frontal, lateral and oblique projections. FINDINGS: No evidence of any acute osseous pathology, soft tissue swelling, or joint effusion is no liberty. Tricompartmental osteophyte formation involving the femoral condyles, tibial plateau and patella . Mild joint space narrowing. Surgical clips on the medial aspect of the distal thigh. IMPRESSION: 1. No acute osseous pathology. 2. Mild tricompartmental osteoarthritic changes.
[2024-02-27 17:23] VITALS: BP 98/70; PULSE 86
== END 2024-02-27 17:40 | disposition home or self-care (01) ==
LOC: EC 14:42
DX: S76.012A Strain of muscle, fascia and tendon of left hip, initial encounter (principal); Z87.891 Personal history of nicotine dependence; Z95.1 Presence of aortocoronary bypass graft; X50.0XXA Overexertion from strenuous movement or load, initial encounter
CPT/HCPCS: 73502; 99283